=== PATIENT | female | born 1975 | race Two or more races ===

== ENCOUNTER 2020-05-06 17:20 | Inpatient (IN) | payer OTHER ==
[~2020-05-06] VITALS: Ht 157.5 cm; Wt 78.3 kg
[2020-05-06] MEDS ORDERED: ONDANSETRON ODT 4 MG TAB PO ONE (18:00)
[2020-05-06] MEDS ORDERED: HYDROcodone-ACET 10/325MG TAB PO ONE (18:00)
[2020-05-06 18:14] LABS: Basophils # (auto) 0.1 10 ^3/uL (0-0.2); Basophils % (auto) 1.1 % (0.0-2.0); Eosinophils # (auto) 0.1 10 ^3/uL (0-0.8); Eosinophils % (auto) 1.5 % (0.0-7.0); Hematocrit 44.2 % (36.0-46.0); Hemoglobin 15.1 g/dL (12.2-16.2); Lymphocytes # (auto) 2.1 10 ^3/uL (0.4-5.4); Lymphocytes % (auto) 41.8 % (10.0-50.0); Mean Corpuscular Hemoglobin 32.1 pg (28.0-32.0); Mean Corpuscular Hgb Conc. 34.2 g/dL (32.0-36.0); Mean Corpuscular Volume 93.9 fL (80.0-100.0); Monocytes # (auto) 0.3 10 ^3/uL (0-1.3); Monocytes % (auto) 6.6 % (0.0-12.0); Neutrophils # (auto) 2.5 10 ^3/uL (1.6-8.6); Nucleated Red Blood Cells % 0.3 %; Platelet Count (auto) 169 10^3/uL (140-450); Red Blood Cells 4.71 10^6/uL (4.0-5.20); Red Cell Distribution Width 12.8 % (11.8-14.3); White Blood Cell 5.1 10^3/uL (4.4-10.8)
[2020-05-06 18:32] LABS: Amylase 41 U/L (25-115); Lipase 168 U/L (73-393)
[2020-05-06 18:35] LABS: Calcium 8.8 mg/dL (8.5-10.1); Potassium 4.3 mmol/L (3.5-5.1)
[2020-05-06 18:40] LABS: Albumin 3.8 g/dL (3.4-5.0); BUN/Creatinine Ratio 16.5; Bilirubin, Total 0.4 mg/dL (0.2-1.0); Total Protein 7.6 g/dL (6.4-8.2)
[2020-05-06 19:16] LABS: Urine Bacteria NONE SEEN /hpf (None Seen); Urine Blood Negative /uL (Negative); Urine Mucus FEW (None Seen); Urine Specific Gravity 1.026 (1.001-1.035); Urine WBC 1 /hpf (0 - 5)
[2020-05-06 19:28] LABS: Alcohol, Urine < 3.0 mg/dL (0-10); Amphetamine Screen, Urine NEGATIVE (NEGATIVE); Barbiturate Scree,Urine NEGATIVE (NEGATIVE); Benzodiazephine Screen, Urine NEGATIVE (NEGATIVE); Cannabinoid Screen, Urine NEGATIVE (NEGATIVE); Cocaine Screen, Urine NEGATIVE (NEGATIVE); Opiate Scree,Urine POSITIVE (NEGATIVE); Phencyclidine Screen, Urine NEGATIVE (NEGATIVE)
[2020-05-06 19:31] LABS: INR 0.93 (0.9-1.15); Partial Thromboplastin Time 24.6 sec (23.0-31.2)
[2020-05-06] MEDS ORDERED: MORPHINE SULFATE 4 MG/ML SYR/VIAL IV ONE (19:45)
[2020-05-06] MEDS ORDERED: ONDANSETRON HCL 4 MG/2 ML VIAL IV ONE (19:45)
[2020-05-06] MEDS ORDERED: MORPHINE SULF INJ 2 MG/ML SYRINGE 1ML IV PRN (20:15)
[2020-05-06] MEDS ORDERED: NITROGLYCERIN 0.4 MG SL TAB SL PRN (20:15)
[2020-05-06] MEDS ORDERED: LACTATED RINGER'S 1,000 ML IV ONE (20:15)
[2020-05-06] MEDS ORDERED: ONDANSETRON HCL 4 MG/2 ML VIAL IV PRN (20:15)
[2020-05-06] MEDS: HYDROmorphone HCL 2 MG/ML VL IV PRN (20:41)
--- NOTE | 2020-05-06 21:35 | NUR ---
MS admit from ER NAVEED PINO admitted to tele/MS, tel box 80. Patient oriented to MEAGHAN ABDULLAHI RN room 294, bed B. Pt is on room air with even and unlabored respirations. Pt ambulated to restroom with a steady gait. Pt is guarding her lower abdomen and stating her pain is 8/10. Pt requesting benadryl saying the pain medication makes her itchy. Will notify MD. Patient weighed by bedscale and encouraged to call if they need something. All questions and concerns addressed, patient verbalized understanding. Bed locked, in lowest position, call light within reach, side rails up x2. Will continue to monitor Q1hr and PRN.
--- NOTE | 2020-05-06 22:06 | NUR ---
[facility] Pt states she gets itchy when she takes medication for pain. Requesting Benadryl Addendum: 05/06/20 at 2226 by MEAGHAN ABDULLAHI RN RN reilly Orr MD Hospitalist
[2020-05-06 22:11] VITALS: BP 126/83
[2020-05-06] MEDS ORDERED: LINA290C OR (22:19)
--- NOTE | 2020-05-06 22:26 | NUR ---
New orders received from MD Felix For Benadryl 25mg Q12 PRN
[2020-05-06] MEDS ORDERED: diphenhdrAMINE HCL 25 MG CAP PO PRN (22:30)
--- NOTE | 2020-05-07 00:05 | NUR ---
Hospitalist paged Pt does not have diet orders
--- NOTE | 2020-05-07 02:00 | NUR ---
Hospitalist paged Need diet orders for pt
--- NOTE | 2020-05-07 02:54 | NUR ---
Call back from hospitalist New orders received
[2020-05-07] MEDS: HYDROmorphone HCL 2 MG/ML VL IV PRN ×4 (04:23→22:18)
[2020-05-07 04:51] VITALS: BP 117/74
[2020-05-07 08:35] VITALS: BP 127/68
[2020-05-07] MEDS: D5W/SOD CHL 0.45%/KCL 20MEQ 1,000 ML IV SCH ×3 (09:45→22:29)
[2020-05-07] MEDS ORDERED: D5W/SOD CHL 0.45%/KCL 20MEQ 1,000 ML IV SCH (10:00)
[2020-05-07] MEDS: diphenhdrAMINE HCL 50 MG/1 ML VL IV PRN ×3 (10:14→22:18)
[2020-05-07 11:52] LABS: Albumin 3.3 g/dL (3.4-5.0); Calcium 8.6 mg/dL (8.5-10.1); Potassium 4.2 mmol/L (3.5-5.1)
[2020-05-07 11:54] LABS: Bilirubin, Total 0.5 mg/dL (0.2-1.0); Total Protein 6.6 g/dL (6.4-8.2)
[2020-05-07] MEDS: ceFAZolin 1GM/50ML 50 ML IV SCH ×2 (12:27→20:13)
[2020-05-07 13:08] VITALS: BP 130/76
[2020-05-07] MEDS: metroNIDAZOLE 500MG/100ML 100 ML IV SCH ×2 (13:17→22:19)
[2020-05-07 16:57] VITALS: BP 127/77
--- NOTE | 2020-05-07 19:00 | NUR ---
Opening Shift Note Assumed care of patient, awake and alert X4. No S/S of distress/SOB. Reviewed charts and medication. Instructed on POC and to call for assist PRN, will continue to monitor for changes Q1hr and PRN.
[2020-05-07 22:00] VITALS: BP 117/71
[2020-05-08] VITALS (26 sets, daily range): BP systolic 95–135; BP diastolic 61–81
[2020-05-08] MEDS: ceFAZolin 1GM/50ML 50 ML IV SCH ×2 (04:01→12:27)
[2020-05-08] MEDS: HYDROmorphone HCL 2 MG/ML VL IV PRN ×11 (04:38→20:18)
[2020-05-08] MEDS: diphenhdrAMINE HCL 50 MG/1 ML VL IV PRN ×4 (04:39→22:20)
[2020-05-08] MEDS: metroNIDAZOLE 500MG/100ML 100 ML IV SCH ×3 (06:14→22:38)
[2020-05-08 07:01] LABS: Basophils # (auto) 0 10 ^3/uL (0-0.2); Basophils % (auto) 0.5 % (0.0-2.0); Eosinophils # (auto) 0.2 10 ^3/uL (0-0.8); Eosinophils % (auto) 3.1 % (0.0-7.0); Hematocrit 40.2 % (36.0-46.0); Hemoglobin 14.3 g/dL (12.2-16.2); Lymphocytes # (auto) 2.3 10 ^3/uL (0.4-5.4); Lymphocytes % (auto) 44.1 % (10.0-50.0); Mean Corpuscular Hemoglobin 32.8 pg (28.0-32.0); Mean Corpuscular Hgb Conc. 35.5 g/dL (32.0-36.0); Mean Corpuscular Volume 92.3 fL (80.0-100.0); Monocytes # (auto) 0.4 10 ^3/uL (0-1.3); Monocytes % (auto) 8.1 % (0.0-12.0); Neutrophils # (auto) 2.3 10 ^3/uL (1.6-8.6); Neutrophils % (auto) 44.2 % (37.0-80.0); Nucleated Red Blood Cells % 0.1 %; Platelet Count (auto) 138 10^3/uL (140-450); Red Blood Cells 4.35 10^6/uL (4.0-5.20); Red Cell Distribution Width 12.7 % (11.8-14.3); White Blood Cell 5.2 10^3/uL (4.4-10.8)
--- NOTE | 2020-05-08 07:30 | NUR ---
Opening shift note Assumed care patient in bed AOx4. Patient complains of pain 4/10 to abdominal area at this time. Patient informed she is not do for her pain medication until 0838. Patient informed to maintain NPO status for planned procedure today, patient verbalizes understanding of teaching. Bed in low, locked position, call light within reach. Will continue care.
[2020-05-08] MEDS ORDERED: SUCCINYLCHOLINE CHLORIDE 20 MG/ML 10ML VIAL IV ONE ×2 (09:13→15:59)
[2020-05-08] MEDS ORDERED: ONDANSETRON HCL 4 MG/2 ML VIAL ONE ×2 (09:19→16:01)
[2020-05-08] MEDS ORDERED: PROPOFOL 10 MG/ML 20 ML IV ONE ×2 (09:19→16:01)
[2020-05-08] MEDS ORDERED: DexAMETHasone SOD PHOS 10MG/1ML VIAL INJ ONE ×2 (09:19→16:01)
[2020-05-08] MEDS ORDERED: LIDOCAINE 2% (LOCAL ANESTH.) PF 5ml SDV ONE ×2 (09:19→16:01)
[2020-05-08] MEDS ORDERED: KETOROLAC TROMETH 60MG/2ML VIAL ONE (09:19)
[2020-05-08] MEDS ORDERED: fentaNYL CITRATE 100 MCG/2 ML VL ONE ×2 (09:20→16:05)
--- NOTE | 2020-05-08 09:20 | NUR ---
Patient in Pre-OP Patient taken to pre-op at this time. No s/s of distress or noted. Consents pending signature, Preop RN was made aware.
[2020-05-08] MEDS ORDERED: ROCURONIUM 10MG/ML 10ML VIAL IV ONE (09:21)
[2020-05-08] MEDS ORDERED: ceFAZolin 1GM/50ML 50 ML IV ONE (09:27)
[2020-05-08] MEDS ORDERED: MIDAZOLAM HCL 1MG/1ML-2 ML VIAL ONE (09:34)
[2020-05-08] MEDS ORDERED: NEOSTIGMINE 1 MG/ML INJ (10mg/10ML VIAL) ONE (10:17)
[2020-05-08] MEDS ORDERED: GLYCOPYRROLATE 0.2 MG/ML 1ML VIAL ONE (10:17)
[2020-05-08] MEDS ORDERED: ONDANSETRON HCL 4 MG/2 ML VIAL IV PRN ×3 (10:30→17:45)
[2020-05-08] MEDS ORDERED: LABETALOL HCL 5 MG/ML 4ML SYRINGE IV PRN ×2 (11:00→17:45)
--- NOTE | 2020-05-08 11:50 | NUR ---
Patient back from PACU Received patient AOx4 s/p laparoscopic appendectomy. Three medial abdomen incisions assessed with mild drainage noted, no bleeding noted. PAtient complains of pain 10/10 but per TITLE SUPERVISOR she was just medicated with 2 mg of Dilaudid. Patient was made aware of this and verbalizes understanding of next pain medication dose. Patient instructed to call for assistance before attempting to get up, patient verbalized understanding. Call light within reach, bed in lowest locked position. Will continue to monitor Q1hr and as needed.
[2020-05-08] MEDS: D5W/SOD CHL 0.45%/KCL 20MEQ 1,000 ML IV SCH (12:27)
--- NOTE | 2020-05-08 12:58 | NUR ---
Pain Patient reports pain 10/10 abdominal pain s/p Laparoscopic Appendectomy. Pain unrelieved by previous Dilaudid administration. Next dose of pain medication is not due at this time. Patient currently tachycardic at a rate of 150 and BP slightly elevated. Dr. Tinsley paged at this time. Will await call back.
--- NOTE | 2020-05-08 13:12 | NUR ---
paged back New orders received and verified for Dilaudid 1mg IV one time dose. Will implement orders at this time and continue to monitor patient.
[2020-05-08] MEDS ORDERED: HYDROmorphone HCL 2 MG/ML VL IV ONE (13:15)
[2020-05-08] MEDS: METOCLOPRAMIDE HCL 5MG/ml INJ 2ml VIAL IV SCH ×2 (14:00→22:37)
--- NOTE | 2020-05-08 14:36 | NUR ---
paged elevated HR Dr. Tinsley paged at this time regarding patients HR remaining in the 150's for past hour. New orders received at this time for NG rube insertion on low continous suction, Hemoglobin and hematocrit STAT lab, page DR. Mcintyre to come assess patient. Will implement orders at this time. Addendum: 05/08/20 at 1824 by TONO BABIN RN RN pageariella elevated HR Dr. Tinsley paged at this time regarding patients HR remaining in the 150's for past hour and new finding of abdominal rigidity . New orders received at this time for NG tube insertion on low continuos suction, Hemoglobin and hematocrit STAT labs. Will implement orders at this time and continue to monitor.
--- NOTE | 2020-05-08 15:10 | NUR ---
PT refusing NG tube placement Patient refusing NG tube placement at this time. 1 attempt performed, patient physically stopped RN from inserting tube and stated she can't do it. Patient complains of pain. Dr. Tinsley has been paged to notify.
--- NOTE | 2020-05-08 15:15 | NUR ---
Dr. Tinsley at bedside MD planning on performing Laparoscopy possible Laparotomy STAT. New orders received at this time. Will implement orders and continue to monitor patient.
--- NOTE | 2020-05-08 15:35 | NUR ---
Patient in Pre-OP Patient taken to pre-op at this time. Patient visibly distressed and in pain . VS: BP- 111/70, T- 98.1, HR-165, O2% 93 on 4L via NC. Handoff report given to OR nurse Christel.
[2020-05-08 15:49] LABS: Basophils # (auto) 0.1 10 ^3/uL (0-0.2); Basophils % (auto) 0.4 % (0.0-2.0); Eosinophils # (auto) 0 10 ^3/uL (0-0.8); Hemoglobin 11.5 g/dL (12.2-16.2); Lymphocytes # (auto) 0.9 10 ^3/uL (0.4-5.4); Lymphocytes % (auto) 5.5 % (10.0-50.0); Mean Corpuscular Hemoglobin 30.8 pg (28.0-32.0); Mean Corpuscular Hgb Conc. 32.9 g/dL (32.0-36.0); Mean Corpuscular Volume 93.4 fL (80.0-100.0); Monocytes # (auto) 0.3 10 ^3/uL (0-1.3); Monocytes % (auto) 2.1 % (0.0-12.0); Neutrophils # (auto) 15.1 10 ^3/uL (1.6-8.6); Platelet Count (auto) 271 10^3/uL (140-450); Red Blood Cells 3.75 10^6/uL (4.0-5.20); Red Cell Distribution Width 12.7 % (11.8-14.3); White Blood Cell 16.4 10^3/uL (4.4-10.8)
[2020-05-08] MEDS ORDERED: ceFAZolin 1GM VL ONE (16:39)
[2020-05-08] MEDS ORDERED: metroNIDAZOLE 500MG/100ML 100 ML IV ONE (16:39)
[2020-05-08] MEDS ORDERED: POVIDONE IODINE 10 % TOPICAL OINT 30GM TOP ONE (17:10)
[2020-05-08] MEDS ORDERED: LACTATED RINGER'S 1,000 ML IV SCH ×2 (17:22→18:30)
[2020-05-08] MEDS ORDERED: ACETAMINOPHEN IV 100 ML IV ONE (17:30)
[2020-05-08] MEDS ORDERED: ePHEDrine SULFATE 50 MG/ML AMP IV PRN (17:45)
[2020-05-08] MEDS ORDERED: HYDROmorphone HCL 2 MG/ML VL IV PRN (17:45)
[2020-05-08] MEDS: MORPHINE SULFATE 4 MG/ML SYR/VIAL IV PRN ×2 (18:21→22:20)
--- NOTE | 2020-05-08 20:00 | NUR ---
RECEIVED PT PERFORMED ASSESSMENT, INCISIONS INTACT, NO SIGNS OF BLEEDING OR REDNESS AT THE SITE, EDUCATED PATIENT ABOUT PAIN MEDICATION AND HOW TO USE CALL LIGHT, PATIENT VERBALIZED UNDERSTANDING. BED IN LOWEST POSITION, PATIÑO DRAINING LIGHT YELLOW URINE DOWN GRAVITY. JALEEL DRAINING SANGUINOUS FLUID, BULB COMPRESS. WILL CONTINUE TO MONITOR AND TREAT PAIN ACCORDINGLY.
--- NOTE | 2020-05-08 20:20 | NUR ---
spoke to md munoz received new orders
[2020-05-08] MEDS ORDERED: SODIUM CHLORIDE 0.9% 1,000 ML IV SCH (20:30)
[2020-05-08] MEDS ORDERED: FUROSEMIDE 20 MG/2 ML VIAL IV ONE (20:30)
--- NOTE | 2020-05-08 20:47 | NUR ---
spoke to germaine (daughter) updated on patients status and poc, all questions and concerns addressed. verbalized understanding.
--- NOTE | 2020-05-08 21:20 | NUR ---
cooling measures implemented temp ax 100.0 c
--- NOTE | 2020-05-08 21:30 | NUR ---
spoke to md munoz updated on pt's status received new orders
[2020-05-08] MEDS ORDERED: ceFAZolin 1GM/50ML 50 ML IV SCH (22:00)
[2020-05-08 23:34] LABS: Basophils # (auto) 0 10 ^3/uL (0-0.2); Basophils % (auto) 0.1 % (0.0-2.0); Eosinophils # (auto) 0 10 ^3/uL (0-0.8); Hematocrit 40.2 % (36.0-46.0); Hemoglobin 13.4 g/dL (12.2-16.2); Lymphocytes # (auto) 0.8 10 ^3/uL (0.4-5.4); Lymphocytes % (auto) 5.8 % (10.0-50.0); Mean Corpuscular Hemoglobin 30.8 pg (28.0-32.0); Mean Corpuscular Hgb Conc. 33.3 g/dL (32.0-36.0); Mean Corpuscular Volume 92.7 fL (80.0-100.0); Monocytes # (auto) 0.5 10 ^3/uL (0-1.3); Monocytes % (auto) 3.7 % (0.0-12.0); Neutrophils # (auto) 11.9 10 ^3/uL (1.6-8.6); Neutrophils % (auto) 90.4 % (37.0-80.0); Nucleated Red Blood Cells % 0.1 %; Platelet Count (auto) 130 10^3/uL (140-450); Red Blood Cells 4.34 10^6/uL (4.0-5.20); Red Cell Distribution Width 13.3 % (11.8-14.3); White Blood Cell 13.1 10^3/uL (4.4-10.8)
[2020-05-09] VITALS (31 sets, daily range): BP systolic 86–121; BP diastolic 51–72
--- NOTE | 2020-05-09 03:12 | NUR ---
SPOKE WITH ESTEVAN GUADARRAMA UPDATED ON PT'S STATUS. RECEIVED NEW ORDERS.
[2020-05-09] MEDS: MORPHINE SULFATE 4 MG/ML SYR/VIAL IV PRN (03:19)
[2020-05-09] MEDS: diphenhdrAMINE HCL 50 MG/1 ML VL IV PRN ×4 (03:19→22:37)
[2020-05-09] MEDS: HYDROmorphone HCL 2 MG/ML VL IV PRN ×4 (04:40→22:37)
[2020-05-09 05:03] LABS: Basophils # (auto) 0 10 ^3/uL (0-0.2); Eosinophils # (auto) 0 10 ^3/uL (0-0.8)
[2020-05-09 05:08] LABS: Basophils % (auto) 0.1 % (0.0-2.0); Lymphocytes % (auto) 6.4 % (10.0-50.0); Mean Corpuscular Hemoglobin 30.5 pg (28.0-32.0); Mean Corpuscular Hgb Conc. 33.4 g/dL (32.0-36.0); Mean Corpuscular Volume 91.4 fL (80.0-100.0); Monocytes % (auto) 6.3 % (0.0-12.0); Neutrophils # (auto) 13.7 10 ^3/uL (1.6-8.6); Neutrophils % (auto) 87.2 % (37.0-80.0); Platelet Count (auto) 133 10^3/uL (140-450); Red Blood Cells 4.27 10^6/uL (4.0-5.20); Red Cell Distribution Width 13.3 % (11.8-14.3); White Blood Cell 15.7 10^3/uL (4.4-10.8)
[2020-05-09] MEDS ORDERED: PHENYLEPHRINE IV 250 ML IV ONE (05:44)
[2020-05-09] MEDS: metroNIDAZOLE 500MG/100ML 100 ML IV SCH ×3 (06:06→22:11)
[2020-05-09] MEDS: PIPERACILLIN-TAZOB 3.375GM 100 ML IV SCH ×4 (06:06→23:56)
[2020-05-09] MEDS: METOCLOPRAMIDE HCL 5MG/ml INJ 2ml VIAL IV SCH ×3 (06:06→22:11)
--- NOTE | 2020-05-09 06:23 | NUR ---
PATIENT PROGRESS NOTE PATIENT RESTING IN BED WITH EYES CLOSED DID NOT NOTE ANY BLEEDING OR DISCHARGE AT THE SURGICAL INCISION SITES, ALL THREE SURGICAL SITES APPEAR INTACT AND WITHOUT REDNESS, INCISION WELL APPROXIMATED, WARM TO TOUCH. ABDOMEN IS FLAT, FIRM AND ABSENT OF ANY BRUISING OR ECCHYMOSIS. JALEEL put out 180 CC sanguinous fluid, fluid appears more maroon color toward the end of nigh shift. Bulb compressed to creat suction. Patient is afebrile. Reports sore throat, Miguelina barth aware.
--- NOTE | 2020-05-09 07:27 | NUR ---
SPOKE TO ESTEVAN GUADARRAMA RECEIVED NEW ORDERS CONSULT HOSPITALIST REGARDING POSSIBLE PNA
--- NOTE | 2020-05-09 08:30 | NUR ---
DR BARRETO AT BEDSIDE DISCUSSED PATIENTS PLAN OF CARE WITH PATIENT. NEW ORDERS RECEIVED
--- NOTE | 2020-05-09 08:45 | NUR ---
SPOKE WITH DR BORDEN UPDATED ON PATIENTS STATUS, RECEIVED NEW ORDERS
[2020-05-09] MEDS: ACETAMINOPHEN IV 1000 MG/100ML (10MG/ML) IV PRN ×2 (09:13→16:46)
--- NOTE | 2020-05-09 10:00 | NUR ---
PATIENT OUT OF BED TO BEDSIDE CHAIR ABDOMINAL BINDER APPLIED FOR EXTRA ABDOMINAL SUPPORT. 2 RNS AND AID HELPED TRANSITION PATIENT TO BEDSIDE CHAIR. PATIENT TOLERATED FAIR, ON 10L FACE MASK. VITALS REMAINED STABLE
--- NOTE | 2020-05-09 10:18 | NUR ---
DR TATUM AT BEDSIDE DISCUSSED PATIENTS CURRENT STATUS AND PLAN OF CARE WITH PATIENT. PATIENT VERBALIZED UNDERSTANDING.
--- NOTE | 2020-05-09 11:13 | NUR ---
PLACED PATIENT ON 4L NASAL CANNULA NO S/S OF RESPIRATORY DISTRESS NOTED. PATIENT SITTING IN CHAIR AT BEDSIDE. PULSE OX READING 94%. CALL LIGHT WITHIN REACH. EDUCATED TO CALL IF NEEDED. PATIENT VERBALIZED UNDERSTANDING
--- NOTE | 2020-05-09 11:25 | NUR ---
DR BORDEN AT BEDSIDE DISCUSSED PLAN OF CARE WITH PATIENT
[2020-05-09] MEDS: ACETYLCYSTEINE 10 %(100MG/ML) SOL 4ML NEB SCH ×2 (11:34→18:43)
[2020-05-09] MEDS: ALBUTEROL SULF 2.5 MG/0.5ML(0.5%) NEB SOLN NEB SCH ×2 (11:34→18:43)
--- NOTE | 2020-05-09 11:35 | NUR ---
Nutrition Assessment Notes Please refer to link for full assessment notes. Est Energy needs: 1584-8526 kcals (17-20 kcal/kgBW) Est Protein needs: 63-78 gms/day (0.8-1.0 gm/kgBW) Will continue to monitor and reassess prn. Addendum: 05/09/20 at [address] Amended: Links added.
--- NOTE | 2020-05-09 13:48 | NUR ---
SPOKE WITH DR BARRETO UPDATED ON PATIENTS CURRENT STATUS. NO NEW ORDERS
--- NOTE | 2020-05-09 17:10 | NUR ---
PATIENT TRANSFERRED TO NEW BED ASSIGNMENT 272A CONNECTED TO PORTABLE TELE BOX, TRANSPORTED VIA WHEELCHAIR. TRANSPORTED WITH ALL BELONGINGS. PATIENT STATED SHE WILL CALL FAMILY TO NOTIFY OF NEW ROOM ASSIGNMENT
--- NOTE | 2020-05-09 17:19 | NUR ---
Assumed care of patient Patient transferred self from wheelchair to the bed with no complications. Instructed patient on POC, fall precautions and to call for assistance as needed. Patient verbalized understanding. Dressings x3 in the abdomen are dry and intact with no bleeding noted. JALEEL drain noted to the upper medial abdominal incision. JALEEL drain to suction per MD order. JALEEL drain draining sanguinous fluid. Abdominal binder in place per MD order. IS at bedside per MD order. Patient able to demonstrate proper use of IS. Fall precautions in place with call light within reach.
--- NOTE | 2020-05-09 18:32 | NUR ---
Closing note Patient resting in bed with even and unlabored respirations, no distress noted. Fall precautions in place with call light within reach.
--- NOTE | 2020-05-09 18:55 | NUR ---
Care endorsed to ANTONY Neil.
--- NOTE | 2020-05-10 | NUR ---
Dr. Roman returned phone call r/t pt having low grade temp, received order for IV hydration, will f/u with day shift nurse to possible advance pt's diet from ice chips to full liquid, and also see if she can have colace prn.
[2020-05-10] MEDS: diphenhdrAMINE HCL 50 MG/1 ML VL IV PRN ×3 (04:29→21:22)
[2020-05-10] MEDS: MORPHINE SULFATE 4 MG/ML SYR/VIAL IV PRN (04:29)
[2020-05-10 05:09] VITALS: BP 122/78
[2020-05-10] MEDS: METOCLOPRAMIDE HCL 5MG/ml INJ 2ml VIAL IV SCH ×3 (05:47→21:49)
[2020-05-10] MEDS: metroNIDAZOLE 500MG/100ML 100 ML IV SCH ×3 (05:47→21:49)
[2020-05-10 05:57] LABS: Basophils # (auto) 0 10 ^3/uL (0-0.2); Basophils % (auto) 0.2 % (0.0-2.0); Eosinophils # (auto) 0 10 ^3/uL (0-0.8); Eosinophils % (auto) 0.5 % (0.0-7.0); Hemoglobin 10.9 g/dL (12.2-16.2); Lymphocytes # (auto) 2.9 10 ^3/uL (0.4-5.4); Lymphocytes % (auto) 32.7 % (10.0-50.0); Mean Corpuscular Volume 91.4 fL (80.0-100.0); Monocytes # (auto) 0.5 10 ^3/uL (0-1.3); Neutrophils # (auto) 5.4 10 ^3/uL (1.6-8.6); Neutrophils % (auto) 60.6 % (37.0-80.0); Nucleated Red Blood Cells % 0.1 %; Platelet Count (auto) 120 10^3/uL (140-450); Red Blood Cells 3.39 10^6/uL (4.0-5.20); Red Cell Distribution Width 13.7 % (11.8-14.3)
[2020-05-10] MEDS: PIPERACILLIN-TAZOB 3.375GM 100 ML IV SCH ×2 (06:00→11:48)
[2020-05-10 06:03] LABS: BUN/Creatinine Ratio 27.7; Calcium 7.9 mg/dL (8.5-10.1); Potassium 3.7 mmol/L (3.5-5.1)
[2020-05-10] MEDS: ALBUTEROL SULF 2.5 MG/0.5ML(0.5%) NEB SOLN NEB SCH ×4 (07:36→18:34)
[2020-05-10] MEDS: ACETYLCYSTEINE 10 %(100MG/ML) SOL 4ML NEB SCH ×4 (07:37→18:34)
--- NOTE | 2020-05-10 07:38 | NUR ---
DOCTOR BARRETO AT BEDSIDE, ORDERS RECEIVED, WILL PLACE AND CARRY OUT.
[2020-05-10] MEDS ORDERED: BISACODYL 10 MG RECT SUPP PR PRN ×3 (08:00→10:45)
[2020-05-10 09:00] VITALS: BP 129/85
[2020-05-10] MEDS ORDERED: FUROSEMIDE 40 MG/4 ML VIAL IV ONE (09:00)
[2020-05-10] MEDS: DOCUSATE SOD 100 MG CAP PO SCH ×2 (09:20→21:49)
[2020-05-10] MEDS: PANTOPRAZOLE 40 MG TAB PO SCH (09:20)
[2020-05-10] MEDS: HYDROmorphone HCL 2 MG/ML VL IV PRN ×3 (09:22→21:22)
[2020-05-10] MEDS ORDERED: DOCUSATE SOD 100 MG CAP PO PRN (10:45)
[2020-05-10] MEDS: SIMETHICONE 80 MG CHEWABLE TABLET PO SCH ×3 (11:47→21:49)
[2020-05-10] MEDS: SODIUM CHLORIDE 0.9% 1,000 ML IV SCH ×2 (11:48)
[2020-05-10] MEDS: HYDROcodone-ACET 10/325MG TAB PO PRN ×2 (11:50→16:53)
--- NOTE | 2020-05-10 11:52 | NUR ---
EMPTIED 25CC OF JAREN BLOOD FROM PATIENTS JALEEL DRAIN.
--- NOTE | 2020-05-10 12:04 | NUR ---
DR. TATUM AT BEDSIDE DISCUSSING POC WITH PATIENT. INFORMED DR. TATUM OF PATIENTS HEART-RATE INCREASE WHEN AMBULATING Addendum: 05/10/20 at 1216 by Elina Haddad RN DR. TATUM WANTS PATIENT TO NOT EAT TO MUCH UNTIL SHE HAS A BOWEL MOVEMENT OR IS PASSING GAS.
[2020-05-10] MEDS ORDERED: cefTRIAXone 1GM/50ML D5W 50 ML IV ONE (12:15)
--- NOTE | 2020-05-10 12:36 | NUR ---
DR. BORDEN AT BEDSIDE DISCUSSING POC WITH PATIENT. INFORMED OF HEART RATE INCREASE WITH AMBULATION. DR. BORDEN ORDERED CT ANGIO OF CHEST.
[2020-05-10] MEDS ORDERED: IOHEXOL 350 MG/ML 100ML IJ ONE (12:56)
[2020-05-10 13:00] VITALS: BP 142/88
--- NOTE | 2020-05-10 15:01 | NUR ---
Dr. Mcintyre called to check on patient. Updated Dr. Mcintyre that patient is passing gas now and JALEEL drainage is decreasing. orders given to give patient a soft diet.
--- NOTE | 2020-05-10 15:24 | NUR ---
Abdominal Assessment Patient is passing gas, stomach is soft and non-tender. Patient is ambulating.
[2020-05-10 17:00] VITALS: BP 134/89
[2020-05-10] MEDS: ONDANSETRON HCL 4 MG/2 ML VIAL IV PRN (17:19)
--- NOTE | 2020-05-10 17:40 | NUR ---
EMPTIED 20CC OF JAREN BLOOD FROM PATIENTS JALEEL DRAIN.
[2020-05-10 22:00] VITALS: BP 145/95
[2020-05-11] MEDS: ALBUTEROL SULF 2.5 MG/0.5ML(0.5%) NEB SOLN NEB SCH ×4 (00:20→19:18)
[2020-05-11] MEDS: ACETYLCYSTEINE 10 %(100MG/ML) SOL 4ML NEB SCH ×4 (00:20→19:19)
[2020-05-11] MEDS: HYDROmorphone HCL 2 MG/ML VL IV PRN ×2 (04:11→15:08)
[2020-05-11] MEDS: diphenhdrAMINE HCL 50 MG/1 ML VL IV PRN (04:11)
--- NOTE | 2020-05-11 04:13 | NUR ---
pt has been passing gas and had a small BM, diet advanced per MD orders.
[2020-05-11 05:00] VITALS: BP 129/78
[2020-05-11] MEDS: METOCLOPRAMIDE HCL 5MG/ml INJ 2ml VIAL IV SCH ×3 (05:19→21:44)
[2020-05-11 05:37] LABS: Basophils # (auto) 0 10 ^3/uL (0-0.2); Basophils % (auto) 0.6 % (0.0-2.0); Eosinophils # (auto) 0.2 10 ^3/uL (0-0.8); Eosinophils % (auto) 2.5 % (0.0-7.0); Hematocrit 31.7 % (36.0-46.0); Hemoglobin 10.9 g/dL (12.2-16.2); Lymphocytes # (auto) 2.9 10 ^3/uL (0.4-5.4); Lymphocytes % (auto) 44.9 % (10.0-50.0); Mean Corpuscular Hemoglobin 31.7 pg (28.0-32.0); Mean Corpuscular Hgb Conc. 34.4 g/dL (32.0-36.0); Mean Corpuscular Volume 92.2 fL (80.0-100.0); Monocytes # (auto) 0.4 10 ^3/uL (0-1.3); Monocytes % (auto) 6.4 % (0.0-12.0); Neutrophils % (auto) 45.6 % (37.0-80.0); Nucleated Red Blood Cells % 0.1 %; Platelet Count (auto) 118 10^3/uL (140-450); Red Blood Cells 3.44 10^6/uL (4.0-5.20); Red Cell Distribution Width 13.6 % (11.8-14.3); White Blood Cell 6.5 10^3/uL (4.4-10.8)
--- NOTE | 2020-05-11 05:37 | NUR ---
Dr. Mcintyre called for pt update, diet advanced to regular, fauzia output 40cc of rin red blood.
[2020-05-11 05:58] LABS: BUN/Creatinine Ratio 23.1; Calcium 7.9 mg/dL (8.5-10.1); Potassium 3.3 mmol/L (3.5-5.1)
[2020-05-11] MEDS: SIMETHICONE 80 MG CHEWABLE TABLET PO SCH ×4 (06:02→21:54)
[2020-05-11] MEDS: metroNIDAZOLE 500MG/100ML 100 ML IV SCH ×3 (06:02→21:54)
[2020-05-11] MEDS: HYDROcodone-ACET 10/325MG TAB PO PRN ×4 (07:23→23:09)
--- NOTE | 2020-05-11 08:30 | NUR ---
Opening Shift Note Assumed care of patient, awake and alert. No S/S of distress/SOB but presents uncomfortable in bed. Patient states she has no pain but is guarding during assessment and tender on her right abdominal side. JALEEL drain less than 25 ml of blood collected. Instructed on POC and to call for assist PRN. Patient verbalized understanding. Will continue to monitor for changes Q1hr and PRN.
[2020-05-11 08:35] VITALS: BP 125/79
[2020-05-11] MEDS: cefTRIAXone 1GM/50ML D5W 50 ML IV SCH (09:00)
[2020-05-11] MEDS: PANTOPRAZOLE 40 MG TAB PO SCH (09:00)
[2020-05-11] MEDS: DOCUSATE SOD 100 MG CAP PO SCH ×2 (09:00→21:54)
[2020-05-11] MEDS: DOCUSATE CALCIUM 240 MG CAP PO SCH (09:00)
[2020-05-11] MEDS: ONDANSETRON HCL 4 MG/2 ML VIAL IV PRN (09:01)
[2020-05-11 13:00] VITALS: BP 125/83
--- NOTE | 2020-05-11 14:47 | NUR ---
Nutrition Followup Note Wt 75.2kg Pt was alert and oriented at time of rounds. Pt reports appetite is not great, getting better d/t pt diet advanced to regular now. Pt reports some nausea but no other GI issues. Pt po intake appears to be fair aeb pt with avg po intake of 56% x 1 day per Rn note. Will continue to monitor po intake and tolerance of regular diet. Est Energy needs: 9070-1470 kcals (17-20 kcal/kgBW) Est Protein needs: 63-78 gms/day (0.8-1.0 gm/kgBW) Will continue to monitor and reassess prn. Labs; Creat 0.39L, Alb 3.3L, Ca 7.9L, GLUC 116H BM: Pt with 3 BMs 05/11 per Rn note Skin; BS 19 low risk, full details in healthcare administration intern note. PES: Resolved: diet advanced to regular 1) Increased nutrient needs r/t pt with no PO intake aeb pt s/p surgery, with a Clear Liquid diet 2) Altered nutrition related lab values r/t current medical condition aeb hyperglycemia, mild hypoalbuminemia Comments Will continue to monitor PO status, skin status, pertinent labs and weight trends. Will f/u in 3-5 days. 1) Continue to carefully monitor pt PO intake to meet at least 75% of meals 2) Continue current plan of care Expected Outcomes/Goals: Pt appetite to meet at least 75% PO intake Pt labs to improve
[2020-05-11 17:00] VITALS: BP 134/77
--- NOTE | 2020-05-11 17:00 | NUR ---
Paged Dr. Tinsley regarding patient's mid abdominal dressings.
--- NOTE | 2020-05-11 19:04 | NUR ---
JALEEL DRAIN Removed 40cc sanguineous fluid from abdominal JALEEL drain. Patient tolerated well.
[2020-05-11 22:00] VITALS: BP 144/79
--- NOTE | 2020-05-11 23:10 | NUR ---
pt assisted in washing her hair, and dressing change to LFA IV site, site is free from s/s, tolerated well.
[2020-05-12] MEDS: ALBUTEROL SULF 2.5 MG/0.5ML(0.5%) NEB SOLN NEB SCH
[2020-05-12] MEDS: ACETYLCYSTEINE 10 %(100MG/ML) SOL 4ML NEB SCH
--- NOTE | 2020-05-12 | NUR ---
Respiratory note: PT REFUSED HER SCHEDULED MED NEB TX AT THIS TIME. PT STATED SHE FEELS LIKE THEY ARE GIVING HER A SORE THROAT AND WANTS TO SKIP THIS ONE FOR NOW. NO RESPIRATORY DISTRESS NOTED. HR 82 RR 18 SP02 93% ON ROOM AIR.
[2020-05-12] MEDS: ONDANSETRON HCL 4 MG/2 ML VIAL IV PRN ×3 (00:04→09:44)
[2020-05-12 05:00] VITALS: BP 134/86
[2020-05-12] MEDS: metroNIDAZOLE 500MG/100ML 100 ML IV SCH ×2 (05:49→14:00)
[2020-05-12] MEDS: SIMETHICONE 80 MG CHEWABLE TABLET PO SCH ×2 (05:49→11:53)
[2020-05-12] MEDS: MORPHINE SULFATE 4 MG/ML SYR/VIAL IV PRN (05:50)
--- NOTE | 2020-05-12 05:55 | NUR ---
Dr. Mcintyre called for update, dressing changed per her orders, site is free from s/s well approximated, pt tolerated well. Pt also taught how to empty her JALEEL drain and measure output. Verbalized understanding.
[2020-05-12] MEDS: METOCLOPRAMIDE HCL 5MG/ml INJ 2ml VIAL IV SCH ×2 (05:58→14:00)
[2020-05-12 06:30] LABS: Basophils # (auto) 0 10 ^3/uL (0-0.2); Basophils % (auto) 0.6 % (0.0-2.0); Eosinophils # (auto) 0.2 10 ^3/uL (0-0.8); Eosinophils % (auto) 4.2 % (0.0-7.0); Hematocrit 30.7 % (36.0-46.0); Hemoglobin 10.5 g/dL (12.2-16.2); Lymphocytes # (auto) 1.9 10 ^3/uL (0.4-5.4); Lymphocytes % (auto) 41.6 % (10.0-50.0); Mean Corpuscular Hemoglobin 31.3 pg (28.0-32.0); Mean Corpuscular Hgb Conc. 34.1 g/dL (32.0-36.0); Monocytes # (auto) 0.3 10 ^3/uL (0-1.3); Monocytes % (auto) 6.7 % (0.0-12.0); Neutrophils # (auto) 2.2 10 ^3/uL (1.6-8.6); Neutrophils % (auto) 46.9 % (37.0-80.0); Nucleated Red Blood Cells % 0.1 %; Platelet Count (auto) 119 10^3/uL (140-450); Red Blood Cells 3.34 10^6/uL (4.0-5.20); Red Cell Distribution Width 13.4 % (11.8-14.3); White Blood Cell 4.6 10^3/uL (4.4-10.8)
--- NOTE | 2020-05-12 07:30 | NUR ---
Opening Shift Note Assumed care of patient, awake and alert. No S/S of distress/SOB or pain. Instructed on POC and to call for assist PRN, will continue to monitor for changes Q1hr and PRN. Bed is locked and in lowest position. Call light within reach.
--- NOTE | 2020-05-12 07:45 | NUR ---
DR. BARRETO AT BEDSIDE TO FOLLOW UP WITH PATIENT. PER DR. BARRETO PATIENT IS CLEARED FOR D/C WILL FOLLOW UP OUTPATIENT AT HER OFFICE ON SUNDAY AT [address] BARRETO WROTE PRESCRIPTION FOR [facility] FOR PATIENT WILL GIVE TO PATIENT ONCE DISCHARGED. WILL ADVICE DR. BORDEN TO NOTIFY DR. BARRETO WHEN SHE ROUNDS ON PATIENT FOR DC ORDERS.
[2020-05-12 08:00] VITALS: BP 135/93
[2020-05-12 09:00] VITALS: BP 135/93
[2020-05-12] MEDS: PANTOPRAZOLE 40 MG TAB PO SCH (09:16)
[2020-05-12] MEDS: cefTRIAXone 1GM/50ML D5W 50 ML IV SCH (09:16)
[2020-05-12] MEDS: DOCUSATE SOD 100 MG CAP PO SCH (09:16)
[2020-05-12] MEDS: DOCUSATE CALCIUM 240 MG CAP PO SCH (09:16)
[2020-05-12] MEDS ORDERED: POTASSIUM CHL 20 Meq TABLET PO ONE (09:30)
--- NOTE | 2020-05-12 12:01 | NUR ---
JALEEL DRAIN REMOVED 30 ML OF BRIGHT RED FLUID.
[2020-05-12 12:57] VITALS: BP 149/90
[2020-05-12 14:31] VITALS: BP 138/72
--- NOTE | 2020-05-12 14:41 | NUR ---
assessment Patient is a 44 year old female who is alert and oriented. Patients cognitive abilities are intact. Prior to admission patient lived home with family and functioned independently. Patient informed me she is able to care for her own ADLs. Per patient she will return home to her prior living arrangements post discharge and family will transport her home. Per patient she is here visiting her mother. Patient lives in [place]. Per patient she will return to [place] on discharge. Patients PCP is Dr Barney in [place]. Patient has no post discharge needs identified at this time. I informed patient she has a right to speak to a marriage and family social worker regarding all care. I informed patient she has a right to participate in any and all discharge planning. Patient does not have a POA and advanced directive. I have offered patient information on POA and advanced directives. I informed the patient the advantages and benefits of having an Advanced Directive. Patient verbalized understanding and agreed to discharge plan. Addendum: 05/12/20 at 1446 by Siobhan PERRIN Amended: Links added.
--- NOTE | 2020-05-12 15:00 | NUR ---
DISCHARGE PATIENT DISCHARGE PAPERWORK GIVEN TO PATIENT WITH PRESCRIPTIONS, ALL QUESTIONS AND CONCERNS ANSWERED. TELE BOX NUMBER 58 REMOVED AND SENT TO ICU HEART LAB. PATIENT AMBULATED TO PERSONAL VEHICLE WITH NO SIGNS OF DISTRESS OR SOB. IV removal IV DC'd LEFT AC with clean sterile technique, catheter fully intact. Pressure dressing applied to site. Patient tolerated well.
== END 2020-05-12 15:00 | disposition home or self-care (01) | DRG 513 ==
LOC: ER 17:20 → TELE 17:21 → TELE-WESTW 21:26 → ICU WEST 05-08 20:15 → TELE-WESTW 05-09 16:27
PROVIDERS: ADMIT Specialist; ATTEND Internal Medicine
PROC: 0UT04ZZ Resection of Right Ovary, Percutaneous Endoscopic Approach (ICD-10-PCS; 2020-05-08)
PROC: 30233N1 Transfusion of Nonautologous Red Blood Cells into Peripheral Vein, Percutaneous Approach (ICD-10-PCS; 2020-05-08)
PROC: 0DTJ4ZZ Resection of Appendix, Percutaneous Endoscopic Approach (ICD-10-PCS; principal; 2020-05-08 09:36)
DX: N83.201 Unspecified ovarian cyst, right side (principal); J15.6 Pneumonia due to other Gram-negative bacteria; K66.1 Hemoperitoneum; N88.8 Other specified noninflammatory disorders of cervix uteri; R10.2 Pelvic and perineal pain; Z86.711 Personal history of pulmonary embolism; J96.00 Acute respiratory failure, unspecified whether with hypoxia or hypercapnia; R73.9 Hyperglycemia, unspecified; Z20.828 Contact with and (suspected) exposure to other viral communicable diseases; Z90.49 Acquired absence of other specified parts of digestive tract
CPT/HCPCS: 36415; 71045; 71275; 74176; 76817; 76856; 80048; 80053; 80307; 81001; 82150; 82378; 83036; 83690; 84702; 85025; 85610; 85730; 86301; 86304; 86850; 86900; 86901; 86920; 87040; 87426; 94640; 96361; 96365; 96375; 97163; 97530; G0378; J0131; J0330; J0690; J0696; J1100; J1885; J2001; J2250; J2405; J2543; J2704; J3490; Q0162

== ENCOUNTER 2020-05-15 00:03 | Inpatient (IN) | payer OTHER ==
[~2020-05-15] VITALS: Ht 157.5 cm; Wt 74.5 kg
[~2020-05-15 00:03] MED LIST: LINA290C OR
[2020-05-15] MEDS ORDERED: SODIUM CHLORIDE 0.9% 1,000 ML IV ONE (01:15)
[2020-05-15] MEDS ORDERED: MORPHINE SULFATE 4 MG/ML SYR/VIAL IV ONE (01:15)
[2020-05-15] MEDS ORDERED: ONDANSETRON HCL 4 MG/2 ML VIAL IV ONE (01:15)
[2020-05-15] MEDS ORDERED: PIPERACILLIN-TAZOB 3.375GM 100 ML IV ONE (01:15)
[2020-05-15 01:20] LABS: Basophils # (auto) 0.1 10 ^3/uL (0-0.2); Basophils % (auto) 0.6 % (0.0-2.0); Eosinophils # (auto) 0.1 10 ^3/uL (0-0.8); Eosinophils % (auto) 1.2 % (0.0-7.0); Hematocrit 36.6 % (36.0-46.0); Hemoglobin 12.6 g/dL (12.2-16.2); Lymphocytes # (auto) 2.2 10 ^3/uL (0.4-5.4); Lymphocytes % (auto) 23.8 % (10.0-50.0); Mean Corpuscular Hemoglobin 31.8 pg (28.0-32.0); Mean Corpuscular Hgb Conc. 34.5 g/dL (32.0-36.0); Mean Corpuscular Volume 92.2 fL (80.0-100.0); Monocytes # (auto) 0.6 10 ^3/uL (0-1.3); Monocytes % (auto) 6.7 % (0.0-12.0); Neutrophils # (auto) 6.3 10 ^3/uL (1.6-8.6); Neutrophils % (auto) 67.7 % (37.0-80.0); Nucleated Red Blood Cells % 0.1 %; Platelet Count (auto) 210 10^3/uL (140-450); Red Blood Cells 3.97 10^6/uL (4.0-5.20); White Blood Cell 9.3 10^3/uL (4.4-10.8)
[2020-05-15 01:26] LABS: Albumin 3.6 g/dL (3.4-5.0); Amylase 32 U/L (25-115); Anion Gap 7 (5-15); BUN/Creatinine Ratio 8.9; Blood Urea Nitrogen 9 mg/dL (7-18); Calcium 9.2 mg/dL (8.5-10.1); Carbon Dioxide 28 mmol/L (21-32); Chloride 103 mmol/L (98-107); GFR African American 76 mL/min; GFR Non-African American 63 mL/min; Glucose 144 mg/dL (74-106); Lipase 182 U/L (73-393); Magnesium 1.6 mg/dL (1.6-2.6); Potassium 3.6 mmol/L (3.5-5.1); Sodium 138 mmol/L (136-145)
[2020-05-15 01:32] LABS: Alanine Aminotransferase 25 U/L (13-56); Alkaline Phosphatase 65 U/L (45-117); Aspartate Aminotransferase 17 U/L (15-37); Bilirubin, Total 0.6 mg/dL (0.2-1.0); Total Protein 7.1 g/dL (6.4-8.2)
[2020-05-15] MEDS ORDERED: HYDROmorphone HCL 2 MG/ML VL IV ONE ×2 (02:15→03:30)
[2020-05-15] MEDS ORDERED: VANCOMYCIN 1GM/250ML 250 ML IV ONE (02:45)
[2020-05-15] MEDS ORDERED: VANCOMYCIN PER PHARMACY 0 MG IV SCH (03:15)
[2020-05-15] MEDS ORDERED: DOCUSATE SOD 100 MG CAP PO PRN (03:15)
[2020-05-15] MEDS ORDERED: ACETAMINOPHEN 325 MG TAB PO PRN (03:15)
[2020-05-15] MEDS: SODIUM CHLORIDE 0.9% 1,000 ML IV SCH (04:11)
[2020-05-15] MEDS ORDERED: diphenhdrAMINE HCL 50 MG/1 ML VL IV ONE ×2 (04:15)
[2020-05-15 05:00] VITALS: BP 137/83
[2020-05-15 05:16] VITALS: BP 137/83
[2020-05-15] MEDS: MORPHINE SULF INJ 2 MG/ML SYRINGE 1ML IV PRN ×2 (07:22→11:18)
[2020-05-15] MEDS: HYDROcodone-ACET 5/325MG TAB PO PRN ×3 (08:40→17:51)
[2020-05-15] MEDS: PIPERACILLIN-TAZOB 3.375GM 100 ML IV SCH ×2 (08:42→17:27)
[2020-05-15 08:50] VITALS: BP 146/87
[2020-05-15 10:08] LABS: Basophils # (auto) 0 10 ^3/uL (0-0.2); Basophils % (auto) 0.4 % (0.0-2.0); Eosinophils # (auto) 0 10 ^3/uL (0-0.8); Eosinophils % (auto) 0.6 % (0.0-7.0); Hematocrit 36.3 % (36.0-46.0); Hemoglobin 12.5 g/dL (12.2-16.2); Lymphocytes # (auto) 1.9 10 ^3/uL (0.4-5.4); Lymphocytes % (auto) 22.9 % (10.0-50.0); Mean Corpuscular Hemoglobin 31.8 pg (28.0-32.0); Mean Corpuscular Hgb Conc. 34.4 g/dL (32.0-36.0); Mean Corpuscular Volume 92.4 fL (80.0-100.0); Monocytes # (auto) 0.7 10 ^3/uL (0-1.3); Monocytes % (auto) 8.4 % (0.0-12.0); Neutrophils # (auto) 5.6 10 ^3/uL (1.6-8.6); Neutrophils % (auto) 67.7 % (37.0-80.0); Platelet Count (auto) 203 10^3/uL (140-450); Red Blood Cells 3.92 10^6/uL (4.0-5.20); Red Cell Distribution Width 13.8 % (11.8-14.3); White Blood Cell 8.2 10^3/uL (4.4-10.8)
[2020-05-15 10:39] LABS: Calcium 8.6 mg/dL (8.5-10.1); Potassium 3.8 mmol/L (3.5-5.1)
[2020-05-15 10:45] LABS: BUN/Creatinine Ratio 11.4
[2020-05-15 13:00] VITALS: BP 157/102
[2020-05-15] MEDS: diphenhdrAMINE HCL 50 MG/1 ML VL IV PRN ×2 (14:43→21:05)
[2020-05-15] MEDS: ONDANSETRON HCL 4 MG/2 ML VIAL IV PRN (14:48)
[2020-05-15] MEDS: HYDROmorphone HCL 2 MG/ML VL IV PRN ×2 (15:21→19:25)
[2020-05-15] MEDS: VANCOMYCIN 1GM/250ML 250 ML IV SCH (16:04)
[2020-05-15 16:31] VITALS: BP 134/86
[2020-05-15 18:10] LABS: INR 0.97 (0.9-1.15)
[2020-05-15 22:00] VITALS: BP 121/79
[2020-05-16] MEDS: HYDROmorphone HCL 2 MG/ML VL IV PRN ×6 (00:08→21:03)
[2020-05-16] MEDS: SODIUM CHLORIDE 0.9% 1,000 ML IV SCH ×2 (01:19→12:30)
[2020-05-16] MEDS: PIPERACILLIN-TAZOB 3.375GM 100 ML IV SCH ×3 (02:55→17:42)
[2020-05-16] MEDS: diphenhdrAMINE HCL 50 MG/1 ML VL IV PRN ×5 (03:30→21:02)
[2020-05-16] MEDS: VANCOMYCIN 1GM/250ML 250 ML IV SCH ×4 (04:26→20:00)
[2020-05-16 05:05] VITALS: BP 120/81
[2020-05-16 06:24] LABS: Basophils # (auto) 0 10 ^3/uL (0-0.2); Basophils % (auto) 0.5 % (0.0-2.0); Eosinophils # (auto) 0.1 10 ^3/uL (0-0.8); Eosinophils % (auto) 1.5 % (0.0-7.0); Hematocrit 35.8 % (36.0-46.0); Hemoglobin 12.1 g/dL (12.2-16.2); Lymphocytes # (auto) 1.3 10 ^3/uL (0.4-5.4); Lymphocytes % (auto) 21.1 % (10.0-50.0); Mean Corpuscular Hemoglobin 31.8 pg (28.0-32.0); Mean Corpuscular Hgb Conc. 33.8 g/dL (32.0-36.0); Mean Corpuscular Volume 94.2 fL (80.0-100.0); Monocytes # (auto) 0.5 10 ^3/uL (0-1.3); Monocytes % (auto) 7.6 % (0.0-12.0); Neutrophils # (auto) 4.3 10 ^3/uL (1.6-8.6); Neutrophils % (auto) 69.3 % (37.0-80.0); Nucleated Red Blood Cells % 0.1 %; Platelet Count (auto) 178 10^3/uL (140-450); Red Cell Distribution Width 14.1 % (11.8-14.3); White Blood Cell 6.2 10^3/uL (4.4-10.8)
[2020-05-16 06:43] LABS: Potassium 3.9 mmol/L (3.5-5.1)
[2020-05-16] MEDS: HYDROcodone-ACET 5/325MG TAB PO PRN ×2 (06:43→11:58)
[2020-05-16 06:54] LABS: Calcium 8.5 mg/dL (8.5-10.1)
[2020-05-16 08:28] VITALS: BP 126/81
[2020-05-16 13:00] VITALS: BP 119/74
[2020-05-16] MEDS ORDERED: OMNIPAQUE ORAL SOLN 500ml 12mg/ml PO ONE (14:05)
[2020-05-16] MEDS: ONDANSETRON HCL 4 MG/2 ML VIAL IV PRN (15:24)
[2020-05-16 17:00] VITALS: BP 131/89
[2020-05-16 22:06] VITALS: BP_SYST 116; BP_SYST 147; BP_DIAS 63; BP_DIAS 95
[2020-05-17] VITALS (7 sets, daily range): BP systolic 114–128; BP diastolic 67–91
[2020-05-17] MEDS: HYDROmorphone HCL 2 MG/ML VL IV PRN ×6 (01:03→22:50)
[2020-05-17] MEDS: diphenhdrAMINE HCL 50 MG/1 ML VL IV PRN ×6 (01:03→22:50)
[2020-05-17] MEDS: PIPERACILLIN-TAZOB 3.375GM 100 ML IV SCH ×3 (02:00→17:00)
[2020-05-17] MEDS: SODIUM CHLORIDE 0.9% 1,000 ML IV SCH ×2 (05:04→21:44)
[2020-05-17 05:26] LABS: Basophils # (auto) 0 10 ^3/uL (0-0.2); Basophils % (auto) 0.5 % (0.0-2.0); Eosinophils # (auto) 0.1 10 ^3/uL (0-0.8); Eosinophils % (auto) 1.6 % (0.0-7.0); Hematocrit 33.3 % (36.0-46.0); Hemoglobin 11.6 g/dL (12.2-16.2); Lymphocytes # (auto) 1.5 10 ^3/uL (0.4-5.4); Lymphocytes % (auto) 30.5 % (10.0-50.0); Mean Corpuscular Hgb Conc. 34.8 g/dL (32.0-36.0); Monocytes # (auto) 0.5 10 ^3/uL (0-1.3); Monocytes % (auto) 10.7 % (0.0-12.0); Neutrophils # (auto) 2.7 10 ^3/uL (1.6-8.6); Neutrophils % (auto) 56.7 % (37.0-80.0); Nucleated Red Blood Cells % 0.2 %; Platelet Count (auto) 200 10^3/uL (140-450); Red Blood Cells 3.62 10^6/uL (4.0-5.20); Red Cell Distribution Width 13.6 % (11.8-14.3); White Blood Cell 4.8 10^3/uL (4.4-10.8)
[2020-05-17 05:43] LABS: BUN/Creatinine Ratio 11.5; Calcium 8.4 mg/dL (8.5-10.1); Potassium 3.9 mmol/L (3.5-5.1)
[2020-05-17] MEDS: VANCOMYCIN 1GM/250ML 250 ML IV SCH ×2 (08:20→20:28)
[2020-05-17] MEDS ORDERED: LACTULOSE 20Gm/30ML SOLN PO PRN (12:30)
[2020-05-18] VITALS (8 sets, daily range): BP systolic 116–140; BP diastolic 59–97
[2020-05-18] MEDS: PIPERACILLIN-TAZOB 3.375GM 100 ML IV SCH ×3 (01:54→18:11)
[2020-05-18] MEDS: diphenhdrAMINE HCL 50 MG/1 ML VL IV PRN ×4 (05:15→22:53)
[2020-05-18] MEDS: HYDROmorphone HCL 2 MG/ML VL IV PRN (05:28)
[2020-05-18 07:05] LABS: Basophils # (auto) 0 10 ^3/uL (0-0.2); Basophils % (auto) 0.8 % (0.0-2.0); Eosinophils # (auto) 0.1 10 ^3/uL (0-0.8); Eosinophils % (auto) 1.8 % (0.0-7.0); Hematocrit 32.1 % (36.0-46.0); Hemoglobin 11.4 g/dL (12.2-16.2); Lymphocytes # (auto) 1.2 10 ^3/uL (0.4-5.4); Lymphocytes % (auto) 29.8 % (10.0-50.0); Mean Corpuscular Hemoglobin 32.3 pg (28.0-32.0); Mean Corpuscular Hgb Conc. 35.4 g/dL (32.0-36.0); Mean Corpuscular Volume 91.4 fL (80.0-100.0); Monocytes # (auto) 0.4 10 ^3/uL (0-1.3); Monocytes % (auto) 10.9 % (0.0-12.0); Neutrophils # (auto) 2.2 10 ^3/uL (1.6-8.6); Neutrophils % (auto) 56.7 % (37.0-80.0); Nucleated Red Blood Cells % 0.1 %; Platelet Count (auto) 210 10^3/uL (140-450); Red Blood Cells 3.51 10^6/uL (4.0-5.20); Red Cell Distribution Width 13.3 % (11.8-14.3); White Blood Cell 3.9 10^3/uL (4.4-10.8)
[2020-05-18 07:23] LABS: BUN/Creatinine Ratio 13.5; Calcium 8.2 mg/dL (8.5-10.1); Potassium 3.6 mmol/L (3.5-5.1)
[2020-05-18] MEDS: VANCOMYCIN 1GM/250ML 250 ML IV SCH ×3 (09:39→23:57)
[2020-05-18] MEDS: KETOROLAC TROMETH 30 MG/ML 1ML VIAL IV PRN ×4 (09:48→23:47)
[2020-05-18] MEDS: ONDANSETRON HCL 4 MG/2 ML VIAL IV PRN (11:26)
[2020-05-18] MEDS: HYDROcodone-ACET 5/325MG TAB PO PRN (13:46)
[2020-05-18] MEDS: SODIUM CHLORIDE 0.9% 1,000 ML IV SCH (14:30)
[2020-05-18] MEDS ORDERED: ACETAMINOPHEN/CODEINE#3 (300/30mg) TAB PO PRN (16:00)
[2020-05-19] MEDS: PIPERACILLIN-TAZOB 3.375GM 100 ML IV SCH ×2 (01:57→09:59)
[2020-05-19 04:42] VITALS: BP 123/67
[2020-05-19] MEDS: diphenhdrAMINE HCL 50 MG/1 ML VL IV PRN (05:48)
[2020-05-19 05:57] LABS: Basophils # (auto) 0 10 ^3/uL (0-0.2); Basophils % (auto) 1.1 % (0.0-2.0); Eosinophils # (auto) 0.1 10 ^3/uL (0-0.8); Eosinophils % (auto) 2.7 % (0.0-7.0); Hematocrit 31.6 % (36.0-46.0); Hemoglobin 10.8 g/dL (12.2-16.2); Lymphocytes # (auto) 1.5 10 ^3/uL (0.4-5.4); Lymphocytes % (auto) 36.6 % (10.0-50.0); Mean Corpuscular Hgb Conc. 34.2 g/dL (32.0-36.0); Mean Corpuscular Volume 93.4 fL (80.0-100.0); Monocytes # (auto) 0.5 10 ^3/uL (0-1.3); Monocytes % (auto) 11.7 % (0.0-12.0); Neutrophils % (auto) 47.9 % (37.0-80.0); Nucleated Red Blood Cells % 0.1 %; Platelet Count (auto) 189 10^3/uL (140-450); Red Blood Cells 3.38 10^6/uL (4.0-5.20); Red Cell Distribution Width 13.7 % (11.8-14.3); White Blood Cell 4.2 10^3/uL (4.4-10.8)
[2020-05-19 06:23] LABS: Calcium 8.2 mg/dL (8.5-10.1); Potassium 3.6 mmol/L (3.5-5.1)
[2020-05-19 06:25] LABS: BUN/Creatinine Ratio 11.6
[2020-05-19] MEDS: SODIUM CHLORIDE 0.9% 1,000 ML IV SCH (07:10)
[2020-05-19] MEDS: VANCOMYCIN 1GM/250ML 250 ML IV SCH (08:03)
[2020-05-19] MEDS: KETOROLAC TROMETH 30 MG/ML 1ML VIAL IV PRN (08:03)
[2020-05-19 09:00] VITALS: BP 151/81
[2020-05-19 13:00] VITALS: BP 127/64
== END 2020-05-19 14:50 | disposition home or self-care (01) | DRG 813 ==
LOC: ER 00:04 → OVERFLOW 00:05 → WEST WING 06:19
PROVIDERS: ADMIT Hospitalist; ATTEND Internal Medicine
DX: K91.870 Postprocedural hematoma of a digestive system organ or structure following a digestive system procedure (principal); I10 Essential (primary) hypertension; E87.1 Hypo-osmolality and hyponatremia; N83.201 Unspecified ovarian cyst, right side; Y83.8 Other surgical procedures as the cause of abnormal reaction of the patient, or of later complication, without mention of misadventure at the time of the procedure; K58.9 Irritable bowel syndrome, unspecified; Z86.711 Personal history of pulmonary embolism; Z90.49 Acquired absence of other specified parts of digestive tract; R73.03 Prediabetes
CPT/HCPCS: 36415; 74176; 80048; 80053; 80061; 80202; 82150; 83036; 83605; 83690; 83735; 84443; 84484; 85025; 85610; 87040; 87081; G0378; J1885; J2405; J2543

== ENCOUNTER 2021-02-02 00:27 | Emergency (ER) | payer MEDICAID, OTHER ==
[~2021-02-02] VITALS: Ht 157.5 cm; Wt 65.8 kg
[2021-02-02] MEDS ORDERED: cefTRIAXone SOD 1,000 MG VL IM ONE (03:30)
[2021-02-02] MEDS ORDERED: diphenhdrAMINE HCL 25 MG CAP PO ONE (03:30)
[2021-02-02] MEDS ORDERED: methylPREDNISolone SOD SUCC 125 MG/2 ML VL IM ONE (03:30)
[2021-02-02] MEDS ORDERED: LIDOCAINE 1% HCL (LOCAL ANESTH.) INJ 20ML MDV IJ ONE (03:45)
[2021-02-02 03:58] VITALS: BP 133/88
== END 2021-02-02 04:02 | disposition home or self-care (01) ==
LOC: ER 00:27
DX: T78.40XA Allergy, unspecified, initial encounter (principal); E11.9 Type 2 diabetes mellitus without complications; Z90.49 Acquired absence of other specified parts of digestive tract; Z79.899 Other long term (current) drug therapy; Y92.89 Other specified places as the place of occurrence of the external cause
CPT/HCPCS: 96372; 99284; J0696; J2001; J2930

== ENCOUNTER 2021-05-31 21:28 | Emergency (ER) | payer MEDICAID ==
[~2021-05-31] VITALS: Ht 157.5 cm; Wt 70.3 kg
[2021-05-31 23:38] LABS: Basophils # (auto) 0.1 10 ^3/uL (0-0.2); Basophils % (auto) 1.3 % (0.0-2.0); Eosinophils # (auto) 0 10 ^3/uL (0-0.8); Eosinophils % (auto) 0.9 % (0.0-7.0); Hematocrit 44.6 % (36.0-46.0); Lymphocytes # (auto) 2.3 10 ^3/uL (0.4-5.4); Lymphocytes % (auto) 47.3 % (10.0-50.0); Mean Corpuscular Hemoglobin 33.1 pg (28.0-32.0); Mean Corpuscular Hgb Conc. 35.8 g/dL (32.0-36.0); Mean Corpuscular Volume 92.2 fL (80.0-100.0); Monocytes # (auto) 0.4 10 ^3/uL (0-1.3); Monocytes % (auto) 7.8 % (0.0-12.0); Neutrophils # (auto) 2.1 10 ^3/uL (1.6-8.6); Neutrophils % (auto) 42.7 % (37.0-80.0); Nucleated Red Blood Cells % 0.1 %; Red Blood Cells 4.83 10^6/uL (4.0-5.20); White Blood Cell 4.9 10^3/uL (4.4-10.8)
[2021-05-31 23:52] LABS: Albumin 3.8 g/dL (3.4-5.0); BUN/Creatinine Ratio 26.4; Calcium 9.5 mg/dL (8.5-10.1)
[2021-05-31 23:55] LABS: Bilirubin, Total 0.4 mg/dL (0.2-1.0); Total Protein 7.6 g/dL (6.4-8.2)
[2021-06-01] MEDS ORDERED: IOHEXOL 300 MG/ML 100ML BOTTLE IJ ONE (01:38)
[2021-06-01] MEDS ORDERED: ONDANSETRON HCL 4 MG/2 ML VIAL IV ONE (02:00)
[2021-06-01] MEDS ORDERED: fentaNYL CITRATE 100 MCG/2 ML VL IV ONE (02:00)
[2021-06-01] MEDS ORDERED: HYDROmorphone HCL 2 MG/ML VL IV ONE ×2 (04:00)
[2021-06-01] MEDS ORDERED: diphenhdrAMINE HCL 50 MG/1 ML VL IV ONE (04:45)
[2021-06-01 06:27] LABS: Urine Bacteria NONE SEEN /hpf (None Seen); Urine Blood Negative /uL (Negative); Urine Specific Gravity 1.045 (1.001-1.035); Urine WBC 3 /hpf (0 - 5)
[2021-06-01 06:54] VITALS: BP 131/90
[2021-06-01] MEDS ORDERED: KETOROLAC TROMETH 30 MG/ML 1ML VIAL IV ONE (07:30)
== END 2021-06-01 07:23 | disposition home or self-care (01) ==
LOC: ER 21:31
DX: N83.202 Unspecified ovarian cyst, left side (principal); E11.9 Type 2 diabetes mellitus without complications; Z90.49 Acquired absence of other specified parts of digestive tract
CPT/HCPCS: 36415; 74177; 76830; 76856; 80053; 81001; 82150; 83690; 84702; 85025; 96374; 96375; 99285; J1170; J1200; J1885; J2405; J3010; J7030; Q9967

== ENCOUNTER 2021-06-12 18:06 | Emergency (ER) | payer MEDICAID ==
[~2021-06-12] VITALS: Ht 157.5 cm; Wt 68.0 kg
[2021-06-12] MEDS ORDERED: KETOROLAC TROMETH 30 MG/ML 1ML VIAL IV ONE (18:45)
[2021-06-12] MEDS ORDERED: SODIUM CHLORIDE 0.9% 1,000 ML IV ONE (18:45)
[2021-06-12] MEDS ORDERED: MORPHINE SULFATE 4 MG/ML SYR/VIAL IV ONE (18:45)
[2021-06-12 19:30] LABS: Basophils # (auto) 0 10 ^3/uL (0-0.2); Basophils % (auto) 0.8 % (0.0-2.0); Eosinophils # (auto) 0.1 10 ^3/uL (0-0.8); Eosinophils % (auto) 1.1 % (0.0-7.0); Hematocrit 44.4 % (36.0-46.0); Hemoglobin 15.3 g/dL (12.2-16.2); Lymphocytes # (auto) 1.9 10 ^3/uL (0.4-5.4); Mean Corpuscular Hemoglobin 31.9 pg (28.0-32.0); Mean Corpuscular Hgb Conc. 34.6 g/dL (32.0-36.0); Mean Corpuscular Volume 92.3 fL (80.0-100.0); Monocytes # (auto) 0.5 10 ^3/uL (0-1.3); Monocytes % (auto) 10.2 % (0.0-12.0); Neutrophils % (auto) 45.9 % (37.0-80.0); Nucleated Red Blood Cells % 0.3 %; Red Blood Cells 4.81 10^6/uL (4.0-5.20); Red Cell Distribution Width 13.2 % (11.8-14.3); White Blood Cell 4.5 10^3/uL (4.4-10.8)
[2021-06-12 19:43] LABS: Calcium 8.8 mg/dL (8.5-10.1); Magnesium 2.3 mg/dL (1.6-2.6); Potassium 4.6 mmol/L (3.5-5.1)
[2021-06-12 19:47] LABS: BUN/Creatinine Ratio 21.3; Bilirubin, Total 0.6 mg/dL (0.2-1.0); Total Protein 7.7 g/dL (6.4-8.2)
[2021-06-12 19:57] LABS: Urine Bacteria FEW /hpf (None Seen); Urine Blood Negative /uL (Negative); Urine Specific Gravity 1.008 (1.001-1.035); Urine WBC 21 /hpf (0 - 5)
[2021-06-12] MEDS ORDERED: IOHEXOL 300 MG/ML 100ML BOTTLE IJ ONE ×2 (20:01→20:51)
[2021-06-12] MEDS ORDERED: cefTRIAXone 1GM/50ML D5W 50 ML IV ONE (21:00)
[2021-06-13] MEDS ORDERED: MORPHINE SULFATE 4 MG/ML SYR/VIAL IV ONE (01:30)
[2021-06-13 03:53] VITALS: BP 160/81
== END 2021-06-13 03:56 | disposition home or self-care (01) ==
LOC: ER 18:09
DX: N83.202 Unspecified ovarian cyst, left side (principal); N83.201 Unspecified ovarian cyst, right side; N39.0 Urinary tract infection, site not specified; N70.11 Chronic salpingitis; R00.0 Tachycardia, unspecified; E11.9 Type 2 diabetes mellitus without complications; Z90.89 Acquired absence of other organs; Z90.49 Acquired absence of other specified parts of digestive tract; Z98.890 Other specified postprocedural states; Z79.899 Other long term (current) drug therapy
CPT/HCPCS: 36415; 74177; 76830; 76856; 80053; 81001; 83605; 83690; 83735; 84702; 85025; 87491; 87591; 96365; 96375; 96376; 99285; J0696; J1885; J2270; J7030; Q9967

== ENCOUNTER 2022-10-09 17:21 | Emergency (ER) | payer MEDICAID ==
[~2022-10-09] VITALS: Ht 157.5 cm; Wt 60.4 kg
[2022-10-09 19:30] LABS: Basophils # (auto) 0 10 ^3/uL (0-0.2); Eosinophils # (auto) 0.1 10 ^3/uL (0-0.8); Eosinophils % (auto) 2.9 % (0.0-7.0); Hematocrit 39.2 % (36.0-46.0); Hemoglobin 13.7 g/dL (12.2-16.2); Lymphocytes # (auto) 2.5 10 ^3/uL (0.4-5.4); Lymphocytes % (auto) 52.5 % (10.0-50.0); Mean Corpuscular Hemoglobin 32.7 pg (28.0-32.0); Mean Corpuscular Volume 93.4 fL (80.0-100.0); Monocytes # (auto) 0.2 10 ^3/uL (0-1.3); Monocytes % (auto) 4.9 % (0.0-12.0); Neutrophils # (auto) 1.8 10 ^3/uL (1.6-8.6); Neutrophils % (auto) 38.7 % (37.0-80.0); Nucleated Red Blood Cells % 0.3 %; Red Blood Cells 4.19 10^6/uL (4.0-5.20); Red Cell Distribution Width 12.7 % (11.8-14.3); White Blood Cell 4.7 10^3/uL (4.4-10.8)
[2022-10-09 19:32] LABS: Albumin 3.9 g/dL (3.4-5.0); Calcium 8.9 mg/dL (8.5-10.1); Potassium 4.4 mmol/L (3.5-5.1)
[2022-10-09 19:35] LABS: Bilirubin, Total 0.3 mg/dL (0.2-1.0); Total Protein 7.1 g/dL (6.4-8.2)
[2022-10-09 20:26] LABS: Urine Bacteria NONE SEEN /hpf (None Seen); Urine Blood Negative /uL (Negative); Urine Mucus FEW (None Seen); Urine Specific Gravity 1.041 (1.001-1.035); Urine WBC <1 /hpf (0 - 5)
[2022-10-09] MEDS ORDERED: TRAM-297 PO ×2 (20:59→21:43)
[2022-10-09] MEDS ORDERED: HYDROcodone-ACET 5/325MG TAB PO ONE (22:45)
[2022-10-10] MEDS ORDERED: ONDANSETRON HCL 4 MG/2 ML VIAL IM ONE (01:30)
[2022-10-10] MEDS ORDERED: MORPHINE SULFATE INJ 2 MG/ml SYRG IM ONE ×2 (01:30→01:45)
[2022-10-10 01:48] VITALS: BP 130/86
== END 2022-10-10 03:04 | disposition home or self-care (01) ==
LOC: ER 17:21
DX: R10.2 Pelvic and perineal pain (principal); E11.9 Type 2 diabetes mellitus without complications; Z90.49 Acquired absence of other specified parts of digestive tract; Z79.899 Other long term (current) drug therapy
CPT/HCPCS: 36415; 76830; 76856; 80053; 81001; 84702; 85025; 96372; 99284; J2405

== ENCOUNTER 2022-10-11 11:24 | Inpatient (IN) | payer MEDICAID ==
[~2022-10-11] VITALS: Ht 157.5 cm; Wt 59.0 kg
[~2022-10-11 11:24] MED LIST changes: +TRAM-297 PO
[2022-10-11] MEDS ORDERED: HYDROcodone-ACET 5/325MG TAB PO ONE (12:15)
[2022-10-11] MEDS ORDERED: IOHEXOL 300 MG/ML 100ML BOTTLE IJ ONE (12:54)
[2022-10-11 13:01] LABS: Basophils # (auto) 0 10 ^3/uL (0-0.2); Basophils % (auto) 0.7 % (0.0-2.0); Eosinophils # (auto) 0.1 10 ^3/uL (0-0.8); Hematocrit 40.1 % (36.0-46.0); Hemoglobin 13.7 g/dL (12.2-16.2); Lymphocytes # (auto) 1.7 10 ^3/uL (0.4-5.4); Lymphocytes % (auto) 43.8 % (10.0-50.0); Mean Corpuscular Hemoglobin 31.9 pg (28.0-32.0); Mean Corpuscular Hgb Conc. 34.2 g/dL (32.0-36.0); Mean Corpuscular Volume 93.4 fL (80.0-100.0); Monocytes # (auto) 0.2 10 ^3/uL (0-1.3); Monocytes % (auto) 5.9 % (0.0-12.0); Neutrophils # (auto) 1.9 10 ^3/uL (1.6-8.6); Neutrophils % (auto) 47.6 % (37.0-80.0); Nucleated Red Blood Cells % 0.1 %; Red Cell Distribution Width 12.3 % (11.8-14.3)
[2022-10-11 13:06] LABS: Urine Bacteria NONE SEEN /hpf (None Seen); Urine Blood Negative /uL (Negative); Urine Mucus FEW (None Seen); Urine Specific Gravity 1.017 (1.001-1.035); Urine WBC 1 /hpf (0 - 5); Urine WBC Clumps PRESENT /hpf (None Seen)
[2022-10-11 13:22] LABS: Potassium 3.9 mmol/L (3.5-5.1)
[2022-10-11 13:30] LABS: Albumin 3.7 g/dL (3.4-5.0); BUN/Creatinine Ratio 22.9; Bilirubin, Total 0.5 mg/dL (0.2-1.0); Calcium 8.5 mg/dL (8.5-10.1); Total Protein 6.8 g/dL (6.4-8.2)
[2022-10-11] MEDS ORDERED: KETOROLAC TROMETH 30 MG/ML 1ML VIAL IV ONE (14:45)
[2022-10-11] MEDS ORDERED: MORPHINE SULFATE 4 MG/ML SYR/VIAL IV ONE (15:30)
[2022-10-11] MEDS ORDERED: cefTRIAXone 1GM/50ML D5W 50 ML IV ONE (19:00)
[2022-10-11] MEDS: SODIUM CHLORIDE 0.9% 1,000 ML IV SCH (23:18)
[2022-10-11 23:31] LABS: INR 1.05 (0.9-1.15); Partial Thromboplastin Time 27.5 sec (24.6-33.4)
[2022-10-12] MEDS: ONDANSETRON HCL 4 MG/2 ML VIAL IV PRN ×4 (00:31→18:30)
[2022-10-12] MEDS: MORPHINE SULFATE INJ 2 MG/ml SYRG IV PRN ×5 (00:32→21:50)
[2022-10-12 04:54] LABS: Basophils # (auto) 0 10 ^3/uL (0-0.2); Basophils % (auto) 0.4 % (0.0-2.0); Eosinophils # (auto) 0.1 10 ^3/uL (0-0.8); Eosinophils % (auto) 1.1 % (0.0-7.0); Hematocrit 38.5 % (36.0-46.0); Hemoglobin 13.3 g/dL (12.2-16.2); Lymphocytes # (auto) 2.4 10 ^3/uL (0.4-5.4); Lymphocytes % (auto) 41.3 % (10.0-50.0); Mean Corpuscular Hemoglobin 32.4 pg (28.0-32.0); Mean Corpuscular Hgb Conc. 34.7 g/dL (32.0-36.0); Mean Corpuscular Volume 93.3 fL (80.0-100.0); Monocytes # (auto) 0.3 10 ^3/uL (0-1.3); Neutrophils % (auto) 51.2 % (37.0-80.0); Nucleated Red Blood Cells % 0.1 %; Red Blood Cells 4.12 10^6/uL (4.0-5.20); Red Cell Distribution Width 12.5 % (11.8-14.3); White Blood Cell 5.8 10^3/uL (4.4-10.8)
[2022-10-12 05:06] LABS: Albumin 3.5 g/dL (3.4-5.0); Calcium 8.8 mg/dL (8.5-10.1); Potassium 3.7 mmol/L (3.5-5.1)
[2022-10-12 05:09] LABS: Bilirubin, Total 0.4 mg/dL (0.2-1.0); Total Protein 6.7 g/dL (6.4-8.2)
[2022-10-12] MEDS: PANTOPRAZOLE 40 MG/10 ML VIAL INJ IV SCH (10:39)
[2022-10-12] MEDS: cefTRIAXone 1GM/50ML D5W 50 ML IV SCH (10:40)
[2022-10-12] MEDS: SODIUM CHLORIDE 0.9% 1,000 ML IV SCH (16:14)
[2022-10-12] MEDS ORDERED: PANT40T PO (17:39)
[2022-10-12] MEDS ORDERED: FLUT50SP NAS (17:39)
[2022-10-12] MEDS ORDERED: SUCR1TAB PO (17:39)
[2022-10-12] MEDS ORDERED: TOPI1CAP12 PO (17:39)
[2022-10-12] MEDS ORDERED: LUBI24CA6 PO (17:39)
[2022-10-12 18:25] VITALS: BP 112/74
[2022-10-12 22:00] VITALS: BP 103/77
[2022-10-12] MEDS ORDERED: KETOROLAC TROMETH 30 MG/ML 1ML VIAL IV ONE (22:15)
[2022-10-12] MEDS: HYDROmorphone HCL 2 MG/ML VL/or syr IV PRN (23:07)
[2022-10-13] MEDS: SODIUM CHLORIDE 0.9% 1,000 ML IV SCH (01:25)
[2022-10-13] MEDS: HYDROmorphone HCL 2 MG/ML VL/or syr IV PRN ×3 (04:57→18:12)
[2022-10-13 05:00] VITALS: BP 107/75
[2022-10-13] MEDS: ONDANSETRON HCL 4 MG/2 ML VIAL IV PRN ×3 (05:30→18:12)
[2022-10-13 08:43] VITALS: BP 105/70
[2022-10-13] MEDS: cefTRIAXone 1GM/50ML D5W 50 ML IV SCH (09:04)
[2022-10-13] MEDS: PANTOPRAZOLE 40 MG/10 ML VIAL INJ IV SCH (09:04)
[2022-10-13] MEDS: diphenhdrAMINE HCL 25 MG CAP PO PRN ×2 (12:19→21:11)
[2022-10-13 12:22] VITALS: BP 114/78
[2022-10-13 17:11] VITALS: BP 109/82
[2022-10-13] MEDS: POLYETHYLENE GLYCOL 17 GM PWDR PO PRN (21:10)
[2022-10-13] MEDS: DOCUSATE SOD 100 MG CAP PO SCH (21:11)
[2022-10-13 22:17] VITALS: BP 100/72
[2022-10-14] MEDS: ONDANSETRON HCL 4 MG/2 ML VIAL IV PRN ×3 (01:46→14:02)
[2022-10-14] MEDS: HYDROmorphone HCL 2 MG/ML VL/or syr IV PRN ×3 (02:06→14:02)
[2022-10-14] MEDS: diphenhdrAMINE HCL 25 MG CAP PO PRN ×2 (05:10→11:41)
[2022-10-14 05:15] VITALS: BP 100/66
[2022-10-14] MEDS: cefTRIAXone 1GM/50ML D5W 50 ML IV SCH (08:26)
[2022-10-14] MEDS: DOCUSATE SOD 100 MG CAP PO SCH (08:26)
[2022-10-14] MEDS: PANTOPRAZOLE 40 MG/10 ML VIAL INJ IV SCH (08:26)
[2022-10-14 08:34] VITALS: BP 100/70
[2022-10-14] MEDS: POLYETHYLENE GLYCOL 17 GM PWDR PO PRN (11:41)
[2022-10-14] MEDS ORDERED: HYDR-4798 PO (12:39)
[2022-10-14] MEDS ORDERED: ONDA-144 PO (13:35)
[2022-10-14 14:53] VITALS: BP 116/74
[2022-10-14 17:40] VITALS: BP 105/72
== END 2022-10-14 18:45 | disposition home or self-care (01) | DRG 251 ==
LOC: ER 11:24 → OVERFLOW 22:42 → EAST 10-12 18:10
PROVIDERS: ADMIT Nurse Practitioner; ATTEND Internal Medicine
DX: R10.31 Right lower quadrant pain (principal); E11.9 Type 2 diabetes mellitus without complications; I10 Essential (primary) hypertension; Z20.822 Contact with and (suspected) exposure to COVID-19; Z98.84 Bariatric surgery status; Z90.49 Acquired absence of other specified parts of digestive tract; Z82.49 Family history of ischemic heart disease and other diseases of the circulatory system; Z88.8 Allergy status to other drugs, medicaments and biological substances; Z83.3 Family history of diabetes mellitus
CPT/HCPCS: 36415; 36600; 74177; 76856; 80053; 81001; 81025; 82805; 83605; 85025; 85610; 85730; 87426; 96361; 96365; 96375; C9113; G0378; J0696; J2405

== ENCOUNTER 2023-04-01 16:20 | Emergency (ER) | payer MEDICAID ==
[~2023-04-01] VITALS: Ht 157.5 cm; Wt 53.9 kg
[~2023-04-01 16:20] MED LIST changes: +FLUT50SP NAS; +HYDR-4798 PO; +LUBI24CA6 PO; +ONDA-144 PO; +PANT40T PO; +SUCR1TAB PO; +TOPI1CAP12 PO
[2023-04-01] MEDS ORDERED: KETOROLAC TROMETH 60MG/2ML VIAL IM ONE (17:00)
[2023-04-01] MEDS: HYDROcodone-ACET 10/325MG TAB PO ONE ×2 (17:18→17:19)
[2023-04-01 18:52] LABS: Urine Bacteria NONE SEEN /hpf (None Seen); Urine Blood Negative /uL (Negative); Urine Clarity Clear (Clear); Urine Color Yellow (Yellow); Urine Protein, UAD Negative (Negative); Urine Urobilinogen Normal (Negative); Urine WBC 7 /hpf (0 - 5); Urine pH 5.5 (5.0-8.0)
[2023-04-01] MEDS ORDERED: HYDROmorphone HCL 2 MG/ML VL/or syr IM ONE (19:00)
[2023-04-01] MEDS ORDERED: HYDR-3651 OR (19:12)
[2023-04-01] MEDS ORDERED: IBUP-1455 PO (19:12)
[2023-04-01] MEDS ORDERED: NITR-87 PO (19:16)
[2023-04-01 20:04] VITALS: TEMP 97.7; O2SAT 98
[2023-04-01 20:05] VITALS: BP 115/82; PULSE 69; RESP 16
== END 2023-04-01 20:06 | disposition home or self-care (01) ==
LOC: ER 16:20
DX: B02.9 Zoster without complications (principal); N39.0 Urinary tract infection, site not specified; E11.9 Type 2 diabetes mellitus without complications; Z90.49 Acquired absence of other specified parts of digestive tract; Z79.899 Other long term (current) drug therapy; Z88.8 Allergy status to other drugs, medicaments and biological substances
CPT/HCPCS: 72100; 81001; 96372; 99284; J1170; J1885

== ENCOUNTER 2023-07-03 12:59 | Inpatient (IN) | payer MEDICAID ==
[~2023-07-03] VITALS: Ht 157.5 cm; Wt 55.5 kg
[~2023-07-03 12:59] MED LIST changes: +HYDR-3651 OR; +IBUP-1455 PO; +NITR-87 PO
[2023-07-03 13:16] VITALS: BP 115/84; PULSE 78; RESP 16; O2SAT 97
[2023-07-03 14:23] LABS: Basophils # (auto) 0 10 ^3/uL (0-0.2); Basophils % (auto) 0.8 % (0.0-2.0); Eosinophils # (auto) 0.1 10 ^3/uL (0-0.8); Eosinophils % (auto) 1.6 % (0.0-7.0); Hematocrit 41.4 % (36.0-46.0); Hemoglobin 14.2 g/dL (12.2-16.2); Lymphocytes # (auto) 1.9 10 ^3/uL (0.4-5.4); Lymphocytes % (auto) 33.8 % (10.0-50.0); Mean Corpuscular Hemoglobin 33.4 pg (28.0-32.0); Mean Corpuscular Hgb Conc. 34.2 g/dL (32.0-36.0); Mean Corpuscular Volume 97.7 fL (80.0-100.0); Monocytes # (auto) 0.3 10 ^3/uL (0-1.3); Monocytes % (auto) 5.5 % (0.0-12.0); Neutrophils # (auto) 3.2 10 ^3/uL (1.6-8.6); Neutrophils % (auto) 58.3 % (37.0-80.0); Red Blood Cells 4.24 10^6/uL (4.0-5.20); Red Cell Distribution Width 12.9 % (11.8-14.3); White Blood Cell 5.6 10^3/uL (4.4-10.8)
[2023-07-03 14:26] LABS: Urine Bacteria NONE SEEN /hpf (None Seen); Urine Blood Negative /uL (Negative); Urine Clarity Clear (Clear); Urine Color Yellow (Yellow); Urine Mucus FEW (None Seen); Urine Protein, UAD Negative (Negative); Urine Urobilinogen Normal (Negative); Urine WBC 2 /hpf (0 - 5); Urine pH 6.5 (5.0-8.0)
[2023-07-03 14:54] LABS: Alanine Aminotransferase 64 U/L (7-40); Albumin 4.7 g/dL (3.2-4.8); Alkaline Phosphatase 98 U/L (46-116); Anion Gap 6 (5-15); Aspartate Aminotransferase 48 U/L (13-40); BUN/Creatinine Ratio 26.7 (10.0-20.0); Bilirubin, Total 0.6 mg/dL (0.2-1.0); Blood Urea Nitrogen 20 mg/dL (9-23); Calcium 9.7 mg/dL (8.5-10.1); Carbon Dioxide 31 mmol/L (20-30); Chloride 101 mmol/L (98-107); Glucose 84 mg/dL (74-106); Potassium 4.3 mmol/L (3.5-5.1); Sodium 138 mmol/L (136-145); Total Protein 7.3 g/dL (5.7-8.2)
[2023-07-03 15:07] LABS: Lipase 85 U/L (12-53)
[2023-07-03] MEDS ORDERED: CEPH250C PO (15:27)
[2023-07-03] MEDS ORDERED: METR-344 PO (15:27)
[2023-07-03] MEDS ORDERED: KETOROLAC TROMETH 30 MG/ML 1ML VIAL IV ONE (16:15)
[2023-07-03] MEDS ORDERED: ACETAMINOPHEN 325 MG TAB PO PRN (16:15)
[2023-07-03] MEDS ORDERED: MORPHINE SULFATE INJ 2 MG/ml SYRG IV PRN (16:15)
[2023-07-03] MEDS ORDERED: SODIUM CHLORIDE 0.9% 1,000 ML IV SCH (16:15)
[2023-07-03] MEDS ORDERED: HYDROcodone-ACET 5/325MG TAB PO PRN (16:15)
[2023-07-03] MEDS ORDERED: DOCUSATE SOD 100 MG CAP PO PRN (16:15)
[2023-07-03] MEDS ORDERED: ONDANSETRON HCL 4 MG/2 ML VIAL IV PRN (16:15)
[2023-07-03] MEDS ORDERED: URSO300C2 PO (16:54)
[2023-07-03] MEDS ORDERED: URSODIOL 300 MG CAP PO SCH (22:00)
[2023-07-04] MEDS ORDERED: cefTRIAXone 1GM/50ML D5W 50 ML IV SCH (09:00)
[2023-07-04] MEDS ORDERED: LINZESS 290 MCG CAPSULE PO SCH (10:00)
[2023-07-04] MEDS ORDERED: PANTOPRAZOLE 40 MG TAB PO SCH (10:00)
== END 2023-07-04 00:15 | disposition left against medical advice (07) | DRG 249 ==
LOC: ER 12:59 → OVERFLOW 16:54
PROVIDERS: ADMIT Nurse Practitioner Family; ATTEND Nurse Practitioner Family
DX: K52.9 Noninfective gastroenteritis and colitis, unspecified (principal); K85.90 Acute pancreatitis without necrosis or infection, unspecified; E11.9 Type 2 diabetes mellitus without complications; Z53.29 Procedure and treatment not carried out because of patient's decision for other reasons; N30.00 Acute cystitis without hematuria; Z88.5 Allergy status to narcotic agent; Z90.710 Acquired absence of both cervix and uterus; Z90.49 Acquired absence of other specified parts of digestive tract
CPT/HCPCS: 36415; 74176; 80053; 81001; 83690; 85025; 87040; 87086; G0378; J1885; J2405

== ENCOUNTER 2024-12-01 22:26 | Emergency (ER) | payer MEDICAID ==
[~2024-12-01] VITALS: Ht 157.5 cm; Wt 56.6 kg
[~2024-12-01 22:26] MED LIST changes: +CEPH250C PO; -LUBI24CA6 PO; +LUBI24CA7 PO; +METR-344 PO; +URSO300C2 PO
[2024-12-01 23:15] VITALS: BP 126/89; PULSE 77; RESP 16; TEMP 98.5; O2SAT 97
--- NOTE | 2024-12-02 00:02 | DVH ---
INDICATION: pevic pain TECHNIQUE: Multiple real-time grayscale transabdominal sonographic images along with color and duplex Doppler of the uterus and ovaries were obtained. COMPARISON: PELVIC on DOS: 10/11/22, PELUS on DOS: 10/11/22, PELUS on DOS: 10/09/22 FINDINGS: Patient has had hysterectomy Ovaries were not visualized . 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 And the ovaries were not visualized
[2024-12-02 00:12] LABS: Hematocrit 34.5 % (36.0-46.0); Hemoglobin 12.2 g/dL (12.2-16.2); Mean Corpuscular Hemoglobin 33.3 pg (28.0-32.0); Mean Corpuscular Hgb Conc. 35.5 g/dL (32.0-36.0); Mean Corpuscular Volume 93.7 fL (80.0-100.0); Platelet Count (auto) 181 10^3/uL (140-450); Red Blood Cells 3.68 10^6/uL (4.0-5.20); Red Cell Distribution Width 12.6 % (11.8-14.3); White Blood Cell 4.9 10^3/uL (4.4-10.8)
[2024-12-02 00:12] LABS: Urine Bacteria None Seen /hpf (None Seen)
[2024-12-02 00:17] LABS: Band Neutrophils % (manual) 0; Basophils % (manual) 0 (0.0-2.0); Blast Cells 0; Eosinophils % (manual) 0 (0-7); Metamyelocytes % 0; Myelocytes % 0; Promyelocytes % 0
[2024-12-02 00:29] LABS: Chloride 102 mmol/L (98-107); Potassium 4.3 mmol/L (3.5-5.1); Sodium 139 mmol/L (136-145)
[2024-12-02 00:30] LABS: Anion Gap 5 (5-15); Calcium 9.8 mg/dL (8.7-10.4)
[2024-12-02 00:35] LABS: BUN/Creatinine Ratio 23.9 (10.0-20.0); Blood Urea Nitrogen 16 mg/dL (9-23)
[2024-12-02 00:36] LABS: Carbon Dioxide 32 mmol/L (20-31); Glucose 74 mg/dL (74-106)
[2024-12-02 00:45] LABS: Urine Blood Negative /uL (Negative); Urine Clarity Clear (Clear); Urine Color Yellow (Yellow); Urine Mucus FEW (None Seen); Urine Protein, UAD Negative (Negative); Urine Specific Gravity 1.022 (1.001-1.035); Urine Squamous Epithelial Cell FEW /hpf (<5); Urine Urobilinogen Normal (Negative); Urine WBC 4 /HPF (0-5); Urine pH 6.5 (5.0-9.0)
--- NOTE | 2024-12-02 00:59 | ED.PDOC ---
History of Present Illness HPI Comments Patient complaining of right lower quadrant abdominal pain which started last night and continued today. Has been having intermittent nausea. Nothing makes it better, nothing makes it worse. States she has been taking ciprofloxacin twice a day for the last four days for urinary tract infection. Thinks it may be improving. No fever no chills. Chief Complaint: Abdominal Pain Time Seen by MD: 22:36 Primary Care Provider: RACIEL Reviewed Notes: Nurses Notes Allergies: Coded Allergies: Tramadol (Verified Adverse Reaction, Unknown, HALLUCINATIONS, INSOMINIA, 10/11/22) Home Meds Active Scripts Metronidazole (Flagyl) 500 Mg Tab, 1 TAB PO TID for 7 Days, #21 TAB Prov:JOSE MANUEL RAMIREZ MD 07/03/23 Cephalexin (KEFLEX CAPSULE) 250 Mg Cp, 250 MG PO QID for 7 Days, #28 Prov:JOSE MANUEL RAMIREZ MD 07/03/23 Nitrofurantoin Monohydrate Mac (Macrobid) 100 Mg Cap, 100 MG PO BID for 5 Days, #10 CAP Prov:SHANTEL WELCH PAC 04/01/23 Hydrocodone-Ibuprofen (HYDROCODONE/IBUPROFEN) 1 Tab Tab, 1 TAB OR Q8HP PRN, #20 TAB Prov:SHANTEL WELCH PAC 04/01/23 Ibuprofen Micronized (Ibuprofen) 800 Mg Tab, 800 MG PO Q8HP PRN, #30 TAB Prov:SHANTEL WELCH PAC 04/01/23 Ondansetron (Zofran) 4 Mg Tab, 1 TAB PO Q6HR PRN, #20 TAB Prov:CORAZON SEBASTIAN MD 10/14/22 Hydrocodone-Acetaminophen (Hydrocodone Bitartrate/AC 10-325 mg) 1 Tab Tab, 1 TAB PO Q6HPRN PRN, #20 TAB Prov:CORAZON SEBASTIAN MD 10/14/22 Tramadol Hcl (Ultram) 50 Mg Tab, 1 TAB PO Q6HR, #30 TAB Prov:MAGDALENO GLYNN MD 10/09/22 Tramadol Hcl (Ultram) 50 Mg Tab, 1 TAB PO Q6HR, #30 TAB Prov:MAGDALENO GLYNN MD 10/09/22 Reported Medications Ursodiol (Ursodiol) 300 Mg Cap, 1 CAP PO BID 11/7/23 Lubiprostone (Amitiza) 24 Mcg Cap, 1 CAP PO BID 10/12/22 Pantoprazole Sodium Sesquihydr (Pantoprazole Sodium) 40 Mg Tab, 1 TAB PO DAILY 10/12/22 Topiramate (Topiramate ER) 25 Mg Cap, 1 CAP PO DAILY 10/12/22 Fluticasone Propionate (Nasal) (Fluticasone Propionate) 50 Mcg/Act Spr, 1 SPRAY CHRISTOPH DAILY 10/12/22 Sucralfate (Sucralfate) 1 Gm Tab, 1 TAB PO BID 10/12/22 Linaclotide Base (LINZESS) 290 Mcg Cap, 290 MCG OR, CAP 05/06/20 Information Source: Patient Mode of Arrival: Ambulatory Past Medical History PAST MEDICAL HISTORY: DM Surgical History: Appendectomy, Cholecystectomy, , Hysterectomy [employer] History: Ovarian Cysts Family History Family History: Reviewed,noncontributory to illness Social History Smoker: Non-Smoker Alcohol: Denies ETOH Use Drugs: Denies Drug Use Lives In: Home Constitutional: denies: chills, diaphoresis, fatigue, fever, malaise, sweats, weakness, others EENTM: denies: blurred vision, double vision, ear bleeding, ear discharge, ear drainage, ear pain, ear ringing, eye pain, eye redness, hearing loss, mouth pain, mouth swelling, nasal discharge, nose bleeding, nose congestion, nose pain, photophobia, tearing, throat pain, throat swelling, voice changes, others Respiratory: denies: cough, hemoptysis, orthopnea, SOB at rest, shortness of breath, SOB with excertion, stridor, wheezing, others Cardiovascular: denies: chest pain, dizzy spells, diaphoresis, Dyspnea on exertion, edema, irregular heart beat, left arm pain, lightheadedness, palpitations, PND, syncope, others Gastrointestinal: reports: abdominal pain; denies: abdomen distended, blood streaked bowels, constipated, diarrhea, dysphagia, difficulty swallowing, hematemesis, melena, nausea, poor appetite, poor fluid intake, rectal bleeding, rectal pain, vomiting, others Genitourinary: denies: abnormal vagina bleeding, burning, dyspareunia, dysuria, flank pain, frequency, hematuria, incontinence, pain, , vagina discharge, urgency, others Neurological: denies: dizziness, fainting, headache, left sided numbness, left sided weakness, numbness, paresthesia, pre-existing deficit, right sided numbness, right sided weakness, seizure, speech problems, tingling, tremors, weakness, others Musculoskeletal: denies: back pain, gout, joint pain, joint swelling, muscle pain, muscle stiffness, neck pain, others Integumetry: denies: bruises, change in color, change in hair/nails, dryness, laceration, lesions, lumps, rash, wounds, others Allergic/Immunocompromised: denies: Difficulty Healing, Frequent Infections, Hives, Itching, others Hematologic/Lymphatic: denies: anemia, blood clots, easy bleeding, easy bruising, swollen glands, others Physical Exam General Appearance: No Apparent Distress, Normal HEENT: Normal ENT Inspection, Pharynx Normal, TMs Normal Neck: Full Range of Motion, Non-Tender, Normal, Normal Inspection Respiratory: Chest Non-Tender, Lungs Clear, No Accessory Muscle Use, No Respiratory Distress, Normal Breath Sounds Cardiovascular: No Edema, No JVD, No Murmur, No Gallop, Normal Peripheral Pulses, Regular Rate/Rhythm Breast Exam: Deferred Gastrointestinal: No Organomegaly, No Pulsatile Mass, Normal Bowel Sounds, RLQ (Tender to palpation), Soft Genitalia: Deferred Pelvic: Deferred Rectal: Deferred Extremities: No calf tenderness, Normal capillary refill, Normal inspection, Normal range of motion, Non-tender, No pedal edema Musculoskeletal : Apperance: Normal Neurologic: Alert, clerk of scales II-XII nml as Tested, No Motor Deficits, Normal Affect, Normal Mood, No Sensory Deficits Cerebellar Function: Normal Reflexes: Normal Skin: Dry, Normal Color, Warm Lymphatic: No Adenopathy Was a procedure done? Was a procedure done?: No Differential Dx Considerations may include: Pyelonephritis, urinary tract infection, ovarian cyst X-Ray, Labs, Meds, VS Vital Signs Date Time Temp Pulse Resp B/P (MAP) Pulse Ox O2 Delivery O2 Flow Rate FiO2 12/01/24 23:15 98.5 77 16 126/89 (101) 97 98.5 Lab Test 12/01/24 23:59 12/01/24 23:51 Range/Units Urine Color Yellow Yellow Urine Clarity Clear Clear Urine pH 6.5 5.0-9.0 Urine Specific [place] 1.022 1.001-1.035 Urine Protein Negative Negative Urine Ketones Negative Negative Urine Blood Negative Negative /uL Urine Nitrite Negative Negative Urine Bilirubin Negative Negative Urine Urobilinogen Normal Negative mg/dL Urine Leukocyte Esterase Negative Negative /uL Urine RBC 1 0 - 4 /hpf Urine Microscopic WBC 4 0-5 /HPF Urine Squamous Epithelial Cells Few <5 /hpf Urine Calcium Oxalate Crystals Few None Seen Urine Bacteria None seen None Seen /hpf Urine Mucus Few None Seen Urine Glucose Normal Normal mg/dL White Blood Count 4.9 4.4-10.8 10^3/uL Red Blood Count 3.68 L 4.0-5.20 10^6/uL Hemoglobin 12.2 12.2-16.2 g/dL Hematocrit 34.5 L 36.0-46.0 % Mean Corpuscular Volume 93.7 80.0-100.0 fL Mean Corpuscular Hemoglobin 33.3 H 28.0-32.0 pg Mean Corpuscular Hemoglobin Concent 35.5 32.0-36.0 g/dL Red Cell Distribution Width 12.6 11.8-14.3 % Platelet Count 181 140-450 10^3/uL Mean Platelet Volume 7.0 6.9-10.8 fL Neutrophils (%) (Auto) 37.0-80.0 % Lymphocytes (%) (Auto) 10.0-50.0 % Monocytes (%) (Auto) 0.0-12.0 % Basophils (%) (Auto) 0.0-2.0 % Neutrophils # (Auto) 1.6-8.6 10 ^3/uL Lymphocytes # (Auto) 0.4-5.4 10 ^3/uL Monocytes # (Auto) 0-1.3 10 ^3/uL Differential Total Cells Counted 100.0 100 Neutrophils % (Manual) 29 L 37.0-80.0 Band Neutrophils % (Manual) 0 Lymphocytes % (Manual) 60 H 10.0-50.0 Monocytes % (Manual) 7 0-12 Eosinophils % (Manual) 0 0-7 Basophils % (Manual) 0 0.0-2.0 Metamyelocytes % (manual) 0 Myelocytes % (Manual) 0 Promyelocytes % (Manual) 0 Blast Cells % (Manual) 0 Reactive Lymphocytes 4 Platelet Estimate Adequate Sodium Level 139 136-145 mmol/L Potassium Level 4.3 3.5-5.1 mmol/L Chloride Level 102 98-107 mmol/L Carbon Dioxide Level 32 H 20-31 mmol/L Anion Gap 5 5-15 Blood Urea Nitrogen 16 9-23 mg/dL Creatinine 0.67 0.550-1.02 mg/dL Glomerular Filtration Rate Calc 106 >90 mL/min BUN/Creatinine Ratio 23.9 H 10.0-20.0 Serum Glucose 74 74-106 mg/dL Calcium Level 9.8 8.7-10.4 mg/dL X-Ray, Labs, Meds, VS Comment Imaging: X-rays and CT scans were reviewed and interpreted by this provider, imaging shows no fractures and no pathological disease. Pending radiology review. Laboratory: Labs reviewed and interpreted by this provider. No significant abnormalities noted. Patient has prior medical visits reviewed. Med reconciliation performed Vital signs reviewed Time of 1ST Reevaluation: 00:59 Reevaluation 1ST: Improved Patient Education/Counseling: Diagnosis, Treatment, Need For Follow Up (Follow up in the emergency department in the next 24-48 hours if symptoms worsen. It was advised to follow up with your primary care doctor in the next 3-4 days for further evaluation.) Family Education/Counseling: Diagnosis Departure 1 Departure Time of Disposition: 01:24 Impression: Primary Impression: UTI (urinary tract infection) Qualified Codes: N30.00 - Acute cystitis without hematuria Disposition: 01 HOME / SELF CARE / HOMELESS Condition: Fair Discharged With: Self Comments Continue medications as prescribed. Critical Care Note Critical Care Time?: No Stability Stability form required: No Heart Score Heart Score: Heart Score Response (Comments) Value History N/A 0 EKG N/A 0 Age N/A 0 Risk Factors N/A 0 Troponin N/A 0 Total 0 RANGEL PARADAP Dec 02, 2024 00:59
[2024-12-02 01:13] LABS: Lymphocytes % (manual) 60 (10.0-50.0); Monocytes % (manual) 7 (0-12); Platelet Estimate Adequate; Reactive Lymphocytes 4
== END 2024-12-02 06:19 | disposition home or self-care (01) ==
LOC: ER 22:26
DX: N39.0 Urinary tract infection, site not specified (principal); E11.9 Type 2 diabetes mellitus without complications; Z90.49 Acquired absence of other specified parts of digestive tract; Z90.710 Acquired absence of both cervix and uterus; Z88.5 Allergy status to narcotic agent; Z79.899 Other long term (current) drug therapy
CPT/HCPCS: 36415; 76856; 80048; 81001; 85007; 85027